=== PATIENT | male | born 1950 | race Caucasian/White ===

== ENCOUNTER 2019-12-03 19:08 | Inpatient (IN) | payer MEDICARE, MEDICAID ==
--- NOTE | 2019-12-03 19:14 | EDM.PDOC ---
ED HPI GENERAL MEDICAL PROBLEM - General Chief Complaint: Gastrointestinal Problem Stated Complaint: VOMITING Time Seen by Provider: 12/03/19 19:11 Source of Information: Reports: RN (From walk-in clinic), RN Notes Reviewed ( From walk-in clinic), Other (prison staff) History Limitations: Reports: Other (Patient is developmentally delayed and is somewhat limited in the history that he can supply.) - History of Present Illness INITIAL COMMENTS - FREE TEXT/NARRATIVE: 69-year-old male who (according to the patient and to the senior living staff) developed lower chest and upper abdominal pain associated with vomiting this morning. The vomiting has persisted through the day and has become bilious. He has been unable to keep any liquids down and he reports of the senior living staff he has had 15-20 episodes of emesis today. He has had no diarrhea. He does report the pain is in his upper abdomen and lower chest and he reports the pain is a 10/10. It is "a bad pain". It doesn't radiate. It is worse with palpation. He also has had a fever today and was measured with a fever of 101.6F here. The senior living staff tried to give him clear liquids throughout the day without him being able to keep any liquids down. He has had no cough. No reports of shortness of breath. No dysuria or hematuria. The patient does report that he has had urine output today. This is really all the history that I can obtain from him and from the senior living staff. He was initially taken to the walk-in clinic and was sent to the emergency department for further evaluation. There are no other associated signs or symptoms. There are no other modifying factors. Onset: Today Duration: Constant Location: Reports: Abdomen Quality: Reports: Sharp Severity: Severe Improves with: Reports: None Worsens with: Reports: Other (Palpation) Context: Reports: Other (As above) Associated Symptoms: Reports: Chest Pain, Fever/Chills, Loss of Appetite, Nausea /Vomiting, Weakness, Other (Abdominal pain) Treatments HIDE PULLER: Reports: Other (see below) (Nothing) abdomen Pain Score (Numeric/FACES): 10 - Related Data Allergies Allergy/AdvReac Type Severity Reaction Status Date / Time grass pollen Allergy Rash Verified 12/03/19 19:32 Home Meds: Home Meds Bimatoprost [LUMIGAN 0.01% Ophth Soln] 1 drop EYEBOTH BEDTIME 12/03/19 [History] Brimonidine Tartrate/Timolol [Combigan 0.2%-0.5% Eye Drops] 1 drop EYEBOTH BID 12/03/19 [History] Divalproex Sodium [Divalproex Sodium ER] 500 mg PO BEDTIME 12/03/19 [History] Dorzolamide HCl 1 drop EYEBOTH BID 12/03/19 [History] FLUoxetine HCl [Fluoxetine HCl] 40 mg PO DAILY 12/03/19 [History] Levothyroxine 75 mcg PO ACBREAKFAST 12/03/19 [History] Multivitamin [Multivitamins] 1 tab PO DAILY 12/03/19 [History] [place]-3 Fatty Acids/Fish Oil [Fish Oil 1,000 mg Softgel] 1 each PO DAILY [History] Polyethylene Glycol 3350 [Gavilax] 17 gm PO DAILY 12/03/19 [History] Vitamin B Complex [Balanced B-50] 1 each PO DAILY 12/03/19 [History] Past Medical History HEENT History: Reports: Glaucoma Cardiovascular History: Reports: High Cholesterol (Dyslipidemia) Gastrointestinal History: Reports: Chronic Constipation Psychiatric History: Reports: Antisocial Behaviors (Listed as having antisocial personality disorder), Depression, Developmental Delay (Borderline intellectual functioning) Endocrine/Metabolic History: Reports: Hypothyroidism - Past Surgical History Other Surgical History Comment: Patient denies any previous surgeries and specifically denies any abdominal operations. Social & Family History - Tobacco Use Smoking Status *Q: Former Smoker (Quit in 1999.) - Alcohol Use Alcohol Use History: No - Living Situation & Occupation Living situation: Reports: Other (Lives in a senior living.) Occupation: Disabled Social History Comment: He is here with senior living staff. ED ROS GENERAL - Review of Systems Review Of Systems: See Below Constitutional: Reports: Fever (This is somewhat limited but the patient is able to provide this information, I feel), Weakness HEENT: Reports: No Symptoms Respiratory: Reports: No Symptoms Cardiovascular: Reports: Chest Pain Endocrine: Reports: No Symptoms GI/Abdominal: Reports: Abdominal Pain, Nausea, Vomiting : Reports: No Symptoms Musculoskeletal: Reports: No Symptoms Skin: Reports: No Symptoms Neurological: Reports: Headache, Weakness (Generalized) Hematologic/Lymphatic: Reports: No Symptoms Immunologic: Reports: No Symptoms ED EXAM, GI/ABD - Physical Exam Exam: See Below Exam Limited By: No Limitations General Appearance: Alert, WD/WN, Moderate Distress Eyes: Bilateral: Normal Appearance, EOMI Ears: Normal External Exam, Hearing Loss Nose: Normal Inspection, Normal Mucosa, No Blood Throat/Mouth: Normal Voice, No Airway Compromise, Other (Dry mucous membranes) Head: Atraumatic, Normocephalic Neck: Normal Inspection, Supple, Non-Tender, Full Range of Motion Respiratory/Chest: No Respiratory Distress, Lungs Clear, Normal Breath Sounds, No Accessory Muscle Use, Chest Non-Tender Cardiovascular: Normal Peripheral Pulses, Regular Rate, Rhythm, No JVD, No Murmur GI/Abdominal Exam: Distended, Guarding, Tender (In the upper abdomen), Abnormal Bowel Sounds (Somewhat increased). No: Rebound (Male) Exam: No Hernia Back Exam: Normal Inspection, Full Range of Motion Extremities: Normal Inspection, Normal Range of Motion, Non-Tender, No Pedal Edema, Normal Capillary Refill Neurological: Alert, Oriented, CN II-XII Intact, No Motor/Sensory Deficits Skin Exam: Warm, Dry, Intact, Normal Color, No Rash EKG INTERPRETATION EKG Date: 12/03/19 Time: 19:48 Rhythm: NSR Rate (Beats/Min): 99 [place]: Normal P-Wave: Present QRS: Normal ST-T: Depressed (Lateral ST depression in inferior ST) QT: Normal Comparison: NA - No Prior EKG Course - Vital Signs Last Recorded V/S: Last Vital Signs Temp 38.7 C H 12/03/19 19:15 Pulse 102 H 12/03/19 19:15 Resp 15 12/03/19 19:15 BP 127/72 12/03/19 19:15 Pulse Ox 95 12/03/19 19:15 - Orders/Labs/Meds Orders: Active Orders 24 hr Category Date Time Status Admission Status [Patient Status] [ADT] Routine ADT 12/03/19 22:59 Active Bladder Scan [RC] ONETIME Care 12/03/19 20:29 Active EKG Documentation Completion [RC] ASDIRECTED Care 12/03/19 19:38 Active Insert Urinary Catheter [OM.PC] ONETIME Care 12/03/19 23:00 Ordered Abdomen Pelvis w Cont [CT] Stat Exams 12/03/19 20:54 Taken Chest 1V Frontal [CR] Stat Exams 12/03/19 22:58 Taken CULTURE BLOOD [BC] Urgent Lab 12/03/19 19:50 Received CULTURE BLOOD [BC] Urgent Lab 12/03/19 19:55 Received CULTURE URINE [RM] Stat Lab 12/03/19 23:05 Received Sodium Chloride 0.9% [Normal Saline] 1,000 ml Med 12/03/19 19:45 Active IV ASDIRECTED Sodium Chloride 0.9% [Saline Flush] Med 12/03/19 19:35 Active 10 ml FLUSH ASDIRECTED PRN Blood Culture x2 Reflex Set [OM.PC] Urgent Oth 12/03/19 19:35 Ordered Peripheral IV Insertion Adult [OM.PC] Routine Oth 12/03/19 19:35 Ordered EKG 12 Lead [EK] Routine Ther 12/03/19 19:38 Ordered Medication Orders Acetaminophen (Tylenol) 650 mg PO Q4H PRN PRN Reason: Pain (Mild 1-3)/fever Ceftriaxone Sodium (Rocephin) 2 gm IVPUSH DAILY@2300 [facility] Sodium Chloride (Normal Saline) 1,000 mls @ 150 mls/hr IV ASDIRECTED JESUS MANUEL Last Admin: 12/03/19 23:00 Dose: 150 mls/hr Azithromycin 500 mg/ Sodium (Chloride) 250 mls @ 250 mls/hr IV DAILY@2300 [facility] Morphine Sulfate (Morphine) 2 mg IVPUSH Q2H PRN PRN Reason: Pain (severe 7-10) Ondansetron HCl (Zofran) 4 mg IV Q6H PRN PRN Reason: Nausea/Vomiting Sodium Chloride (Saline Flush) 10 ml FLUSH ASDIRECTED PRN PRN Reason: Keep Vein Open Labs: Laboratory Tests 12/03/19 12/03/19 12/03/19 Range/Units 19:50 19:50 19:50 WBC 7.5 (4.5-12.0) X10-3/uL RBC 4.78 (4.30-5.75) x10(6)uL Hgb 14.5 (13.5-17.8) g/dL Hct 43.2 (30.0-51.3) % MCV 90.3 (80-96) fL MCH 30.4 (27.7-33.6) pg MCHC 33.6 (32.2-35.4) g/dL RDW 12.8 (11.5-15.5) % Plt Count 207 (125-369) X10(3)uL MPV 7.1 L (7.4-10.4) fL Add Manual Diff Yes Neutrophils % (Manual) 85 H (46-82) % Lymphocytes % (Manual) 7 L (13-37) % Monocytes % (Manual) 8 (4-12) % Sodium 144 (135-145) mmol/L Potassium 3.8 (3.5-5.3) mmol/L Chloride 104 (100-110) mmol/L Carbon Dioxide 28 (21-32) mmol/L BUN 20 H (7-18) mg/dL Creatinine 1.2 (0.70-1.30) mg/dL Est Cr Clr Drug Dosing TNP Estimated GFR (MDRD) > 60 (>60) BUN/Creatinine Ratio 16.7 (9-20) Glucose 199 H (80-116) mg/dL Lactic Acid 2.7 H* (0.4-2.0) mmol/L Calcium 8.6 (8.6-10.2) mg/dL Magnesium 1.5 L (1.8-2.5) mg/dL Total Bilirubin 0.5 (0.1-1.3) mg/dL AST 22 (5-25) IU/L ALT 24 (12-36) U/L Alkaline Phosphatase 62 (56-112) IU/L Troponin I (4.0-60.3) pg/mL C-Reactive Protein (0.5-0.9) mg/dL Total Protein 7.6 (6.0-8.0) g/dL Albumin 3.2 (3.2-4.6) g/dL Globulin 4.4 g/dL Albumin/Globulin Ratio 0.7 Lipase (73-393) U/L Urine Color (YELLOW) Urine Appearance (CLEAR) Urine pH (5.0-6.5) Ur Specific [place] (1.010-1.025) Urine Protein (NEGATIVE) mg/dL Urine Glucose (UA) (NORMAL) mg/dL Urine Ketones (NEGATIVE) mg/dL Urine Occult Blood (NEGATIVE) Urine Nitrite (NEGATIVE) Urine Bilirubin (NEGATIVE) Urine Urobilinogen (NEGATIVE) mg/dL Ur Leukocyte Esterase (NEGATIVE) Urine RBC (0-5) Urine WBC (0-5) Ur Squamous Epith Cells (NS,R,O) Urine Bacteria (NS) Urine Mucus (NS) 12/03/19 12/03/19 12/03/19 Range/Units 19:50 19:50 23:05 WBC (4.5-12.0) X10-3/uL RBC (4.30-5.75) x10(6)uL Hgb (13.5-17.8) g/dL Hct (30.0-51.3) % MCV (80-96) fL MCH (27.7-33.6) pg MCHC (32.2-35.4) g/dL RDW (11.5-15.5) % Plt Count (125-369) X10(3)uL MPV (7.4-10.4) fL Add Manual Diff Neutrophils % (Manual) (46-82) % Lymphocytes % (Manual) (13-37) % Monocytes % (Manual) (4-12) % Sodium (135-145) mmol/L Potassium (3.5-5.3) mmol/L Chloride (100-110) mmol/L Carbon Dioxide (21-32) mmol/L BUN (7-18) mg/dL Creatinine (0.70-1.30) mg/dL Est Cr Clr Drug Dosing Estimated GFR (MDRD) (>60) BUN/Creatinine Ratio (9-20) Glucose (80-116) mg/dL Lactic Acid (0.4-2.0) mmol/L Calcium (8.6-10.2) mg/dL Magnesium (1.8-2.5) mg/dL Total Bilirubin (0.1-1.3) mg/dL AST (5-25) IU/L ALT (12-36) U/L Alkaline Phosphatase (56-112) IU/L Troponin I 6.7 (4.0-60.3) pg/mL C-Reactive Protein 5.1 H* (0.5-0.9) mg/dL Total Protein (6.0-8.0) g/dL Albumin (3.2-4.6) g/dL Globulin g/dL Albumin/Globulin Ratio Lipase 55 L (73-393) U/L Urine Color Yellow (YELLOW) Urine Appearance Slightly cloudy (CLEAR) Urine pH 5.0 (5.0-6.5) Ur Specific [place] 1.020 (1.010-1.025) Urine Protein Negative (NEGATIVE) mg/dL Urine Glucose (UA) Normal (NORMAL) mg/dL Urine Ketones Negative (NEGATIVE) mg/dL Urine Occult Blood Negative (NEGATIVE) Urine Nitrite Negative (NEGATIVE) Urine Bilirubin Negative (NEGATIVE) Urine Urobilinogen Normal (NEGATIVE) mg/dL Ur Leukocyte Esterase Negative (NEGATIVE) Urine RBC 0-5 (0-5) Urine WBC 0-5 (0-5) Ur Squamous Epith Cells Occasional (NS,R,O) Urine Bacteria Few H (NS) Urine Mucus Few H (NS) Meds: Medications Generic Name Dose Route Start Last Admin Trade Name Anny PRN Reason Stop Dose Admin Acetaminophen 650 mg 12/03/19 23:10 Tylenol PO Q4H PRN Pain (Mild 1-3)/fever Ceftriaxone Sodium 2 gm 12/03/19 23:15 Rocephin IVPUSH DAILY@2300 [facility] Sodium Chloride 1,000 mls @ 150 mls/hr 12/03/19 19:45 12/03/19 23:00 Normal Saline IV 150 mls/hr ASDIRECTED JESUS MANUEL Administration Azithromycin 500 mg/ Sodium 250 mls @ 250 mls/hr 12/03/19 23:15 Chloride IV DAILY@2300 [facility] Morphine Sulfate 2 mg 12/03/19 23:10 Morphine IVPUSH Q2H PRN Pain (severe 7-10) Ondansetron HCl 4 mg 12/03/19 23:10 Zofran IV Q6H PRN Nausea/Vomiting Sodium Chloride 10 ml 12/03/19 19:35 Saline Flush FLUSH ASDIRECTED PRN Keep Vein Open Discontinued Medications Generic Name Dose Route Start Last Admin Trade Name Anny PRN Reason Stop Dose Admin Sodium Chloride 1,000 mls @ 999 mls/hr 12/03/19 19:37 12/03/19 19:56 Normal Saline IV 12/03/19 20:37 999 mls/hr .BOLUS ONE Administration Sodium Chloride 1,000 mls @ 999 mls/hr 12/03/19 21:43 12/03/19 21:50 Normal Saline IV 12/03/19 22:43 999 mls/hr .BOLUS ONE Administration Iopamidol 100 ml 12/03/19 20:58 12/03/19 21:28 Isovue-370 (76%) IV 12/03/19 20:59 100 ml . DIRECTED ONE Administration Lidocaine HCl 5 ml 12/03/19 22:51 12/03/19 22:55 Glydo .XX 12/03/19 22:52 5 ml ONETIME ONE Administration Morphine Sulfate 4 mg 12/03/19 19:37 12/03/19 19:54 Morphine IVPUSH 12/03/19 19:38 4 mg ONETIME ONE Administration Ondansetron HCl 4 mg 12/03/19 19:37 12/03/19 19:54 Zofran IVPUSH 12/03/19 19:38 4 mg ONETIME ONE Administration - Radiology Interpretation Free Text/Narrative:: CT scan of abdomen and pelvis shows patchy infiltrate in the posterior left lung base cyst with left lower lobe pneumonia and nothing else to explain the patient's abdominal pain and vomiting there is moderate dilation of the common bile duct and mild intrahepatic biliary ductal dilatation status post cholecystectomy and he does appear to have had his gallbladder taken out. He also has evidence of a umbilical hernia repair. This was per the [facility] radiologist. Portable chest x-ray shows some evidence of infiltrate in the left base but no other abnormalities. - Re-Assessments/Exams Free Text/Narrative Re-Assessment/Exam: 12/03/19 20:50: The patient has had no further emesis since the IV fluids have begun and he has received the Zofran IV. His pain is much improved after the morphine that had been given IV earlier. With the patient's elevated CRP and the slightly elevated lactate and his abdominal and chest pain, I will send the patient for CT of his abdomen and pelvis. I will continue IV fluid hydration as the patient has received a liter of normal saline and still has only 100 mL in his bladder on bladder scan. 12/03/19 22:55: The CT scan of his abdomen and pelvis showed evidence of a left lower lobe pneumonia. I will order a portable chest x-ray to assess the other areas of the lung. I will also treat the patient with Rocephin and Zithromax IV. He has received 2 L of normal saline and his bladder scan showed 280 riojas and his bladder. I will have the nursing staff do an in and out catheter for a urine specimen. I will also have the lactic acid repeated at this time as well. Although this appears to be due to dehydration and not to sepsis at this time. He has remained vitally stable and has improved with the IV fluids while in the emergency department. I will send this for culture as well. The patient has a left lower lobe pneumonia with protracted vomiting and will need admission for IV antibiotics and IV fluids. He will need at least a 2 midnight hospital stay to complete this plan of care. I discussed this with the patient's caregiver from the senior living and with the patient and they are in agreement with the plans for admission. Dr. Thomason will assume care of patient 7 AM on 12/04/2019. 12/03/19 23:55: The patient's lactic acid was back in the normal range and therefore I think the patient the slight elevation in the lactic acid was secondary to dehydration. His influenza screen was also negative. Departure - Departure Time of Disposition: 23:15 Disposition: Admitted As Inpatient 68 Condition: Fair (Able) Clinical Impression: Intractable vomiting with nausea, Severe dehydration Pneumonia Qualifiers: Pneumonia type: due to unspecified organism Laterality: left Lung location: lower lobe of lung Qualified Code(s): J18.9 - Pneumonia, unspecified organism - Discharge Information Sepsis Event Note - Focused Exam Vital Signs: Vital Signs Temp Pulse Resp BP Pulse Ox 12/03/19 19:15 38.7 C H 102 H 15 127/72 95 Date Exam was Performed: 12/03/19 Time Exam was Performed: 23:55 - My Orders Last 24 Hours: My Active Orders 12/03/19 19:35 Sodium Chloride 0.9% [Saline Flush] 10 ml FLUSH ASDIRECTED PRN Blood Culture x2 Reflex Set [OM.PC] Urgent Peripheral IV Insertion Adult [OM.PC] Routine 12/03/19 19:38 EKG Documentation Completion [RC] ASDIRECTED EKG 12 Lead [EK] Routine 12/03/19 19:45 Sodium Chloride 0.9% [Normal Saline] 1,000 ml IV ASDIRECTED 12/03/19 19:50 CULTURE BLOOD [BC] Urgent 12/03/19 19:55 CULTURE BLOOD [BC] Urgent 12/03/19 20:29 Bladder Scan [RC] ONETIME 12/03/19 20:54 Abdomen Pelvis w Cont [CT] Stat 12/03/19 22:58 Chest 1V Frontal [CR] Stat 12/03/19 22:59 Admission Status [Patient Status] [ADT] Routine 12/03/19 23:00 Insert Urinary Catheter [OM.PC] ONETIME 12/03/19 23:05 CULTURE URINE [RM] Stat - Assessment/Plan Last 24 Hours: My Active Orders 12/03/19 19:35 Sodium Chloride 0.9% [Saline Flush] 10 ml FLUSH ASDIRECTED PRN Blood Culture x2 Reflex Set [OM.PC] Urgent Peripheral IV Insertion Adult [OM.PC] Routine 12/03/19 19:38 EKG Documentation Completion [RC] ASDIRECTED EKG 12 Lead [EK] Routine 12/03/19 19:45 Sodium Chloride 0.9% [Normal Saline] 1,000 ml IV ASDIRECTED 12/03/19 19:50 CULTURE BLOOD [BC] Urgent 12/03/19 19:55 CULTURE BLOOD [BC] Urgent 12/03/19 20:29 Bladder Scan [RC] ONETIME 12/03/19 20:54 Abdomen Pelvis w Cont [CT] Stat 12/03/19 22:58 Chest 1V Frontal [CR] Stat 12/03/19 22:59 Admission Status [Patient Status] [ADT] Routine 12/03/19 23:00 Insert Urinary Catheter [OM.PC] ONETIME 12/03/19 23:05 CULTURE URINE [RM] Stat
[2019-12-03] MEDS ORDERED: Sodium Chloride 0.9% 1,000 ML IV ONE ×2 (19:37→21:43)
[2019-12-03] MEDS ORDERED: Ondansetron 4 MG/2 ML SDV IVPUSH ONE (19:37)
[2019-12-03] MEDS ORDERED: Morphine 2 MG/ML Syringe IVPUSH ONE (19:37)
[2019-12-03] MEDS ORDERED: Iopamidol 755 Mg/ML 100 ML Bottle IV ONE (20:58)
[2019-12-03] MEDS ORDERED: Lidocaine 2% HCl 6 ML JEL.PF.APP ONE (22:51)
[2019-12-03] MEDS: Sodium Chloride 0.9% 1,000 ML IV SCH (23:00)
[2019-12-03] MEDS ORDERED: Morphine 2 MG/ML Syringe IVPUSH PRN (23:10)
[2019-12-03] MEDS ORDERED: Acetaminophen 325 MG Tab PO PRN (23:10)
[2019-12-03] MEDS ORDERED: cefTRIAXone 2 GM Vial IVPUSH SCH (23:15)
[2019-12-04] MEDS: Azithromycin 500 MG in Sodium Chloride 0.9% 250 ML IV SCH ×2 (00:15→23:10)
[2019-12-04] MEDS: Sodium Chloride 0.9% 1,000 ML IV SCH ×3 (07:02→23:06)
--- NOTE | 2019-12-04 09:06 | PCM.HP.2 ---
H&P History of Present Illness - General Date of Service: 12/04/19 Admit Problem/Dx: Admission Diagnosis/Problem Admission Diagnosis/Problem Pneumonia Source of Information: Patient, Old Records History Limitations: Reports: Other (Decreased IQ) - History of Present Illness Initial Comments - Free Text/Narative: This is a 69-year-old skilled nursing patient was sent to the ER because of lower chest pain and upper abdominal pain associated with vomiting. Apparently had 15- 20 episodes of emesis during the day yesterday but no diarrhea. He was found to have a fever 101.6. He is brought to the ER and had a CT of the abdomen and was negative except the left lower lobe pneumonia. He was admitted for left lower lobe pneumonia. He denies coughing runny nose, sore throat, shortness of breath. abdomen Pain Score (Numeric/FACES): 10 - Related Data Allergies/Adverse Reactions: Allergies Allergy/AdvReac Type Severity Reaction Status Date / Time grass pollen Allergy Rash Verified 12/03/19 19:32 Home Medications: Home Meds Bimatoprost [LUMIGAN 0.01% Ophth Soln] 1 drop EYEBOTH BEDTIME 12/03/19 [History] Brimonidine Tartrate/Timolol [Combigan 0.2%-0.5% Eye Drops] 1 drop EYEBOTH BID 12/03/19 [History] Carbidopa/Levodopa [Sinemet 25-100 mg Tablet] 1 tab PO TID 12/03/19 [History] Cholecalciferol (Vitamin D3) [Vitamin D3] 400 unit PO BID 12/03/19 [History] Divalproex Sodium [Divalproex Sodium ER] 500 mg PO BEDTIME 12/03/19 [History] Docusate Sodium/Sennosides [Senna Plus] 2 tab PO BID 12/03/19 [History] Dorzolamide HCl 1 drop EYEBOTH BID 12/03/19 [History] FLUoxetine HCl [Fluoxetine HCl] 40 mg PO DAILY 12/03/19 [History] Hypromellose [Systane Gel] 1 drop EYEBOTH BEDTIME 12/03/19 [History] Levothyroxine 75 mcg PO ACBREAKFAST 12/03/19 [History] Multivitamin [Multivitamins] 1 tab PO DAILY 12/03/19 [History] [place]-3 Fatty Acids/Fish Oil [Fish Oil 1,000 mg Softgel] 1 each PO DAILY [History] Omeprazole 20 mg PO DAILY 12/03/19 [History] Polyethylene Glycol 3350 [Gavilax] 17 gm PO DAILY 12/03/19 [History] Propylene Glycol/PEG 400/Pf [Systane Ultra 0.4-0.3% Eye Drp] 1 each EYEBOTH QID 12/03/19 [History] QUEtiapine [SEROquel] 25 mg PO BEDTIME 12/03/19 [History] Simvastatin 20 mg PO DAILY 12/03/19 [History] Vitamin B Complex [Balanced B-50] 1 each PO DAILY 12/03/19 [History] Vitamin E 400 unit PO DAILY 12/03/19 [History] Past Medical History HEENT History: Reports: Glaucoma Other HEENT History: rhinitis Cardiovascular History: Reports: High Cholesterol (Dyslipidemia) Respiratory History: Reports: Other (See Below) Other Respiratory History: former smoker, rhinitis, seasonal allergies. Gastrointestinal History: Reports: Chronic Constipation Genitourinary History: Reports: Other (See Below) Other Genitourinary History: hx of prostatitis-epiclemitis Musculoskeletal History: Reports: Other (See Below) Other Musculoskeletal History: TMJ Arthralgia, motor speech disturbance, mild kyphosis, bursitis. Chronic neck discomfort, hip discomfort. 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 Endocrine/Metabolic History: Reports: Hypothyroidism - Past Surgical History Other Surgical History Comment: Patient denies any previous surgeries and specifically denies any abdominal operations. Social & Family History - Family History Family Medical History: Noncontributory - Tobacco Use Smoking Status *Q: Former Smoker (Quit in 1999.) Used Tobacco, but Quit: Yes Month/Year Tobacco Last Used: unable to remember Second Hand Smoke Exposure: No - Caffeine Use Caffeine Use: Reports: Coffee, Soda - Recreational Drug Use Recreational Drug Use: No - Living Situation & Occupation Living situation: Reports: Other (Lives in a skilled nursing.) Occupation: Disabled H&P Review of Systems - Review of Systems: Review Of Systems: See Below General: Reports: Fever HEENT: Reports: No Symptoms Pulmonary: Reports: No Symptoms Cardiovascular: Reports: Chest Pain Gastrointestinal: Reports: Abdominal Pain, Vomiting. Denies: Bloody Stool, Diarrhea Genitourinary: Reports: No Symptoms Musculoskeletal: Reports: No Symptoms Skin: Reports: No Symptoms Psychiatric: Reports: No Symptoms Neurological: Reports: No Symptoms Hematologic/Lymphatic: Reports: No Symptoms Immunologic: Reports: No Symptoms Exam - Exam Exam: See Below - Vital Signs Vital Signs: Last Vital Signs Temp 98.8 F 12/04/19 08:25 Pulse 90 12/04/19 08:25 Resp 18 12/04/19 08:25 BP 88/50 L 12/04/19 08:25 Pulse Ox 95 12/04/19 08:25 Weight: 170 lb 3 oz - Exam General: Alert, Oriented, Cooperative HEENT: Mucosa Moist & [place], Posterior Pharynx Clear, TMs Clear Neck: Supple, Trachea Midline Lungs: Clear to Auscultation, Normal Respiratory Effort Cardiovascular: Regular Rate, Regular Rhythm. No: Systolic Murmur GI/Abdominal Exam: Normal Bowel Sounds, Soft, Non-Tender, No Organomegaly, No Distention, No Mass Back Exam: Normal Inspection Extremities: Normal Inspection, Non-Tender, No Pedal Edema Neuro Extensive - Mental Status: Alert, Oriented x3, Normal Mood/Affect. No: Normal Cognition Psychiatric: Alert - Patient Data Lab Results Last 24 hrs: Laboratory Results - last 24 hr 12/03/19 12/03/19 12/03/19 Range/Units 19:50 19:50 19:50 WBC 7.5 (4.5-12.0) X10-3/uL RBC 4.78 (4.30-5.75) x10(6)uL Hgb 14.5 (13.5-17.8) g/dL Hct 43.2 (30.0-51.3) % MCV 90.3 (80-96) fL MCH 30.4 (27.7-33.6) pg MCHC 33.6 (32.2-35.4) g/dL RDW 12.8 (11.5-15.5) % Plt Count 207 (125-369) X10(3)uL MPV 7.1 L (7.4-10.4) fL Add Manual Diff Yes Neutrophils % (Manual) 85 H (46-82) % Band Neutrophils % (0-6) % Lymphocytes % (Manual) 7 L (13-37) % Monocytes % (Manual) 8 (4-12) % Sodium 144 (135-145) mmol/L Potassium 3.8 (3.5-5.3) mmol/L Chloride 104 (100-110) mmol/L Carbon Dioxide 28 (21-32) mmol/L BUN 20 H (7-18) mg/dL Creatinine 1.2 (0.70-1.30) mg/dL Est Cr Clr Drug Dosing TNP Estimated GFR (MDRD) > 60 (>60) BUN/Creatinine Ratio 16.7 (9-20) Glucose 199 H (80-116) mg/dL Lactic Acid 2.7 H* (0.4-2.0) mmol/L Calcium 8.6 (8.6-10.2) mg/dL Magnesium 1.5 L (1.8-2.5) mg/dL Total Bilirubin 0.5 (0.1-1.3) mg/dL AST 22 (5-25) IU/L ALT 24 (12-36) U/L Alkaline Phosphatase 62 (56-112) IU/L Troponin I (4.0-60.3) pg/mL C-Reactive Protein (0.5-0.9) mg/dL Total Protein 7.6 (6.0-8.0) g/dL Albumin 3.2 (3.2-4.6) g/dL Globulin 4.4 g/dL Albumin/Globulin Ratio 0.7 Lipase (73-393) U/L Urine Color (YELLOW) Urine Appearance (CLEAR) Urine pH (5.0-6.5) Ur Specific [place] (1.010-1.025) Urine Protein (NEGATIVE) mg/dL Urine Glucose (UA) (NORMAL) mg/dL Urine Ketones (NEGATIVE) mg/dL Urine Occult Blood (NEGATIVE) Urine Nitrite (NEGATIVE) Urine Bilirubin (NEGATIVE) Urine Urobilinogen (NEGATIVE) mg/dL Ur Leukocyte Esterase (NEGATIVE) Urine RBC (0-5) Urine WBC (0-5) Ur Squamous Epith Cells (NS,R,O) Urine Bacteria (NS) Urine Mucus (NS) 12/03/19 12/03/19 12/03/19 Range/Units 19:50 19:50 23:05 WBC (4.5-12.0) X10-3/uL RBC (4.30-5.75) x10(6)uL Hgb (13.5-17.8) g/dL Hct (30.0-51.3) % MCV (80-96) fL MCH (27.7-33.6) pg MCHC (32.2-35.4) g/dL RDW (11.5-15.5) % Plt Count (125-369) X10(3)uL MPV (7.4-10.4) fL Add Manual Diff Neutrophils % (Manual) (46-82) % Band Neutrophils % (0-6) % Lymphocytes % (Manual) (13-37) % Monocytes % (Manual) (4-12) % Sodium (135-145) mmol/L Potassium (3.5-5.3) mmol/L Chloride (100-110) mmol/L Carbon Dioxide (21-32) mmol/L BUN (7-18) mg/dL Creatinine (0.70-1.30) mg/dL Est Cr Clr Drug Dosing Estimated GFR (MDRD) (>60) BUN/Creatinine Ratio (9-20) Glucose (80-116) mg/dL Lactic Acid (0.4-2.0) mmol/L Calcium (8.6-10.2) mg/dL Magnesium (1.8-2.5) mg/dL Total Bilirubin (0.1-1.3) mg/dL AST (5-25) IU/L ALT (12-36) U/L Alkaline Phosphatase (56-112) IU/L Troponin I 6.7 (4.0-60.3) pg/mL C-Reactive Protein 5.1 H* (0.5-0.9) mg/dL Total Protein (6.0-8.0) g/dL Albumin (3.2-4.6) g/dL Globulin g/dL Albumin/Globulin Ratio Lipase 55 L (73-393) U/L Urine Color Yellow (YELLOW) Urine Appearance Slightly cloudy (CLEAR) Urine pH 5.0 (5.0-6.5) Ur Specific [place] 1.020 (1.010-1.025) Urine Protein Negative (NEGATIVE) mg/dL Urine Glucose (UA) Normal (NORMAL) mg/dL Urine Ketones Negative (NEGATIVE) mg/dL Urine Occult Blood Negative (NEGATIVE) Urine Nitrite Negative (NEGATIVE) Urine Bilirubin Negative (NEGATIVE) Urine Urobilinogen Normal (NEGATIVE) mg/dL Ur Leukocyte Esterase Negative (NEGATIVE) Urine RBC 0-5 (0-5) Urine WBC 0-5 (0-5) Ur Squamous Epith Cells Occasional (NS,R,O) Urine Bacteria Few H (NS) Urine Mucus Few H (NS) 12/03/19 12/04/19 12/04/19 Range/Units 23:15 06:20 06:20 WBC 4.3 L (4.5-12.0) X10-3/uL RBC 3.76 L (4.30-5.75) x10(6)uL Hgb 11.6 L (13.5-17.8) g/dL Hct 34.2 (30.0-51.3) % MCV 90.9 (80-96) fL MCH 30.9 (27.7-33.6) pg MCHC 33.9 (32.2-35.4) g/dL RDW 12.9 (11.5-15.5) % Plt Count 161 (125-369) X10(3)uL MPV 7.3 L (7.4-10.4) fL Add Manual Diff Yes Neutrophils % (Manual) 63 (46-82) % Band Neutrophils % 5 (0-6) % Lymphocytes % (Manual) 24 (13-37) % Monocytes % (Manual) 8 (4-12) % Sodium 147 H (135-145) mmol/L Potassium 3.6 (3.5-5.3) mmol/L Chloride 110 D (100-110) mmol/L Carbon Dioxide 29 (21-32) mmol/L BUN 17 (7-18) mg/dL Creatinine 1.0 (0.70-1.30) mg/dL Est Cr Clr Drug Dosing 67.02 Estimated GFR (MDRD) > 60 (>60) BUN/Creatinine Ratio 17.0 (9-20) Glucose 138 H (80-116) mg/dL Lactic Acid 1.5 (0.4-2.0) mmol/L Calcium 6.9 L (8.6-10.2) mg/dL Magnesium (1.8-2.5) mg/dL Total Bilirubin (0.1-1.3) mg/dL AST (5-25) IU/L ALT (12-36) U/L Alkaline Phosphatase (56-112) IU/L Troponin I (4.0-60.3) pg/mL C-Reactive Protein (0.5-0.9) mg/dL Total Protein (6.0-8.0) g/dL Albumin (3.2-4.6) g/dL Globulin g/dL Albumin/Globulin Ratio Lipase (73-393) U/L Urine Color (YELLOW) Urine Appearance (CLEAR) Urine pH (5.0-6.5) Ur Specific [place] (1.010-1.025) Urine Protein (NEGATIVE) mg/dL Urine Glucose (UA) (NORMAL) mg/dL Urine Ketones (NEGATIVE) mg/dL Urine Occult Blood (NEGATIVE) Urine Nitrite (NEGATIVE) Urine Bilirubin (NEGATIVE) Urine Urobilinogen (NEGATIVE) mg/dL Ur Leukocyte Esterase (NEGATIVE) Urine RBC (0-5) Urine WBC (0-5) Ur Squamous Epith Cells (NS,R,O) Urine Bacteria (NS) Urine Mucus (NS) Result Diagrams: 12/04/19 06:20 12/04/19 06:20 Conrad Results Last 24 hrs: Microbiology 12/03/19 23:10 Influenza Type A Antigen Screen - Final Nasopharyngeal Swab NEGATIVE INFLUENZA A VIRUS AG REFERENCE RANGE: NEGATIVE Influenza Type B Antigen Screen - Final NEGATIVE INFLUENZA B VIRUS AG REFERENCE RANGE: NEGATIVE Sepsis Event Note - Evaluation Sepsis Screening Result: No Definite Risk - Focused Exam Vital Signs: Vital Signs Temp Temp Pulse Resp BP Pulse Ox Pulse Ox 12/04/19 08:25 98.8 F 90 18 88/50 L 95 12/04/19 04:00 99.0 F 96 20 96/58 L 96 12/04/19 00:05 99.8 F 100 22 H 100/65 84 L 84 L 12/03/19 23:55 84 L Date Exam was Performed: 12/04/19 Time Exam was Performed: 09:01 - Problem List (1) Palliative care status SNOMED Code(s): 981719760 ICD Code: Z51.5 - ENCOUNTER FOR PALLIATIVE CARE Status: Acute Current Visit: Yes (2) Intractable vomiting with nausea SNOMED Code(s): 697400086 ICD Code: R11.2 - NAUSEA WITH VOMITING, UNSPECIFIED Status: Acute Current Visit: Yes (3) Pneumonia SNOMED Code(s): 338145320 ICD Code: J18.9 - PNEUMONIA, UNSPECIFIED ORGANISM Status: Acute Current Visit: Yes Qualifiers: Pneumonia type: due to unspecified organism Laterality: left Lung location: lower lobe of lung Qualified Code(s): J18.9 - Pneumonia, unspecified organism (4) Severe dehydration SNOMED Code(s): 471077492 ICD Code: E86.0 - DEHYDRATION Status: Acute Current Visit: Yes Problem List Initiated/Reviewed/Updated: Yes Orders Last 24hrs: Active Orders 24 hr Category Date Time Status Admission Status [Patient Status] [ADT] Routine ADT 12/03/19 22:59 Active Insert Urinary Catheter [OM.PC] ONETIME Care 12/03/19 23:00 Ordered Intake and Output [RC] 06,14,22 Care 12/03/19 23:11 Active Oxygen Therapy [RC] PRN Care 12/03/19 23:10 Active Pulse Oximetry [RC] PRN Care 12/03/19 23:11 Active Up With Assistance [RC] ASDIRECTED Care 12/03/19 23:10 Active VTE/DVT Education [RC] Per Unit Routine Care 12/03/19 23:10 Active Vital Signs [RC] Q4H Care 12/03/19 23:10 Active Regular Diet [DIET] Diet 12/04/19 Breakfast Active Abdomen Pelvis w Cont [CT] Stat Exams 12/03/19 20:54 Taken Chest 1V Frontal [CR] Stat Exams 12/03/19 22:58 Taken CULTURE BLOOD [BC] Urgent Lab 12/03/19 19:50 Received CULTURE BLOOD [BC] Urgent Lab 12/03/19 19:55 Received CULTURE URINE [RM] Stat Lab 12/03/19 23:05 Received Acetaminophen [Tylenol] Med 12/03/19 23:10 Active 650 mg PO Q4H PRN Azithromycin [Zithromax] 500 mg Med 12/03/19 23:15 Active Sodium Chloride 0.9% [Normal Saline (AdvBag)] 250 ml IV DAILY@2300 Morphine Med 12/03/19 23:10 Active 2 mg IVPUSH Q2H PRN Ondansetron [Zofran] Med 12/03/19 23:10 Active 4 mg IV Q6H PRN Sodium Chloride 0.9% [Normal Saline] 1,000 ml Med 12/03/19 19:45 Active IV ASDIRECTED Sodium Chloride 0.9% [Saline Flush] Med 12/03/19 19:35 Active 10 ml FLUSH ASDIRECTED PRN cefTRIAXone [Rocephin] Med 12/03/19 23:15 Active 2 gm IVPUSH DAILY@2300 Blood Culture x2 Reflex Set [OM.PC] Urgent Oth 12/03/19 19:35 Ordered Isolation [COMM] Routine Oth 12/03/19 23:26 Ordered Peripheral IV Insertion Adult [OM.PC] Routine Oth 12/03/19 19:35 Ordered Resuscitation Status Routine Resus Stat 12/03/19 23:10 Ordered EKG 12 Lead [EK] Routine Ther 12/03/19 19:38 Ordered Medication Orders Acetaminophen (Tylenol) 650 mg PO Q4H PRN PRN Reason: Pain (Mild 1-3)/fever Ceftriaxone Sodium (Rocephin) 2 gm IVPUSH DAILY@2300 [facility] Last Admin: 12/04/19 00:07 Dose: 2 gm Sodium Chloride (Normal Saline) 1,000 mls @ 150 mls/hr IV ASDIRECTED [facility] Last Admin: 12/04/19 07:02 Dose: 150 mls/hr Infusion: 12/04/19 05:41 Dose: 150 mls/hr Admin: 12/03/19 23:00 Dose: 150 mls/hr Azithromycin 500 mg/ Sodium (Chloride) 250 mls @ 250 mls/hr IV DAILY@2300 [facility] Last Admin: 12/04/19 00:15 Dose: 250 mls/hr Morphine Sulfate (Morphine) 2 mg IVPUSH Q2H PRN PRN Reason: Pain (severe 7-10) Ondansetron HCl (Zofran) 4 mg IV Q6H PRN PRN Reason: Nausea/Vomiting Sodium Chloride (Saline Flush) 10 ml FLUSH ASDIRECTED PRN PRN Reason: Keep Vein Open Assessment/Plan Comment:: 1. Admit to inpatient. 2. IV antibiotics. 3. Blood cultures. 4. Regular diet. 5. IV fluids. 6. Review his home meds and restart the appropriate ones. 7. Up with assist. 8. Repeat labs in the a.m. 9 VTE with Lovenox - Mortality Measure Prognosis:: Good
--- NOTE | 2019-12-04 10:41 | CR ---
INDICATION: Followup pneumonia seen on CT scan. CHEST, 1 VIEW: Portable AP upright view of the chest was obtained 12/03/19 - comparison was made to CT of the abdomen and pelvis of the same date. Poor inspiration emphasizes markings. Somewhat heavy markings are noted at both lung bases, but particularly on the left. Cannot exclude the possibility of pneumonia at the lung bases, especially on the left. The heart appears mildly enlarged. The aorta is tortuous with minimal calcifications in the arch. IMPRESSION: 1. Findings suggest the examination is less than ideal. The possibility of pneumonia, especially at the left lung base, cannot be excluded with findings compatible with CT showing possible pneumonia and possibly also atelectasis in the left lower lobe. 2. ASHD with cardiomegaly. Would suggest a PA and lateral view with full inspiration when clinically possible for further evaluation. MTDD
[2019-12-04] MEDS: Levothyroxine 75 MCG Tab PO SCH (14:14)
[2019-12-04] MEDS: Pantoprazole 40 MG Tab.CR PO SCH (14:14)
[2019-12-04] MEDS: Polyethylene Glycol 3350 Powder 17 GM Packet PO SCH (14:14)
[2019-12-04] MEDS: FLUoxetine 20 MG Cap PO SCH (14:14)
[2019-12-04] MEDS: Carbidopa/Levodopa 25-100 MG Tab PO SCH ×3 (14:16→20:01)
[2019-12-04] MEDS: Brimonidine 0.2% Ophth Soln 5 ML Bottle EYEBOTH SCH ×2 (14:24→20:02)
[2019-12-04] MEDS: Timolol Maleate 0.5% Ophth Soln 5 ML Bottle EYEBOTH SCH ×2 (14:26→21:46)
[2019-12-04] MEDS: PEG 400/Propylene Glycol Ophth Soln 15 ML Bottle EYEBOTH SCH ×4 (14:27→20:02)
[2019-12-04] MEDS: Dorzolamide 2% Ophth Soln 10 ML Bottle EYEBOTH SCH ×2 (14:29→21:46)
[2019-12-04] MEDS ORDERED: Sodium Chloride 0.9% 1,000 ML IV ONE (17:45)
[2019-12-04] MEDS: Ondansetron 4 MG/2 ML SDV IV PRN (20:06)
[2019-12-04] MEDS ORDERED: Non-Formulary Medication 1 Each (Cholecalciferol (Vitamin D3) [Vitamin D3] 400 UNIT) PO SCH (21:00)
[2019-12-04] MEDS: Simvastatin 20 MG Tab PO SCH (21:45)
[2019-12-04] MEDS: QUEtiapine 25 MG Tab PO SCH (21:45)
[2019-12-04] MEDS: Latanoprost 0.005% Ophth Soln 2.5 ML Bottle EYEBOTH SCH (21:46)
[2019-12-04] MEDS: cefTRIAXone 1 GM Vial IVPUSH SCH (22:21)
[2019-12-05] MEDS: Pantoprazole 40 MG Tab.CR PO SCH (05:52)
[2019-12-05] MEDS: Levothyroxine 75 MCG Tab PO SCH (05:52)
[2019-12-05] MEDS: Sodium Chloride 0.9% 1,000 ML IV SCH ×3 (07:29→23:56)
[2019-12-05] MEDS ORDERED: Non-Formulary Medication 1 Each (Vitamin E [Vitamin E] 400 UNIT) PO SCH (09:00)
[2019-12-05] MEDS ORDERED: Non-Formulary Medication 1 Each (Multivitamin [Multivitamins] 1 TAB) PO SCH (09:00)
[2019-12-05] MEDS ORDERED: VITAMIN B COMPLEX PO SCH (09:00)
[2019-12-05] MEDS: Polyethylene Glycol 3350 Powder 17 GM Packet PO SCH (10:21)
[2019-12-05] MEDS: Brimonidine 0.2% Ophth Soln 5 ML Bottle EYEBOTH SCH ×2 (10:21→20:25)
[2019-12-05] MEDS: Fish Oil/Omega-3 Fatty Acids 1 Gm Cap PO SCH (10:21)
[2019-12-05] MEDS: FLUoxetine 20 MG Cap PO SCH (10:21)
[2019-12-05] MEDS: PEG 400/Propylene Glycol Ophth Soln 15 ML Bottle EYEBOTH SCH ×4 (10:22→20:26)
[2019-12-05] MEDS: Timolol Maleate 0.5% Ophth Soln 5 ML Bottle EYEBOTH SCH ×2 (10:22→20:26)
[2019-12-05] MEDS: Dorzolamide 2% Ophth Soln 10 ML Bottle EYEBOTH SCH ×2 (10:22→20:23)
--- NOTE | 2019-12-05 11:59 | PCM.PN ---
- General Info Date of Service: 12/05/19 Admission Dx/Problem (Free Text): Patient is sleeping soundly, had emesis last night, didn't get much sleep. Talked with jail, normally he is quite talkative and let you know what he wants, she stated that if he's not talking much he usually isn't feeling well. They do have to encourage him a lot with eating and drinking, they try to get him to drink around 40 oz of water/day. Does sleep a lot at the jail as well. Is not on oxygen at home. Had some episodes of low blood pressure overnight but corrected this morning. No fevers, he did desaturate down to 88-90 % so oxygen was placed overnight, O2 saturations came up to 94%. - Patient Data Vitals - Most Recent: Last Vital Signs Temp 98.1 F 12/05/19 05:00 Pulse 66 12/05/19 05:00 Resp 16 12/05/19 05:00 BP 100/60 12/05/19 05:00 Pulse Ox 97 12/05/19 05:00 Weight - Most Recent: 170 lb 3 oz I&O - Last 24 Hours: Intake & Output 12/04/19 12/05/19 12/05/19 22:59 06:59 14:59 Intake Total 1220 880 Output Total 200 280 Balance 1020 600 Lab Results Last 24 Hours: Laboratory Results - last 24 hr 12/05/19 12/05/19 Range/Units 06:30 06:30 WBC 5.1 (4.5-12.0) X10-3/uL RBC 3.36 L (4.30-5.75) x10(6)uL Hgb 10.3 L (13.5-17.8) g/dL Hct 30.8 (30.0-51.3) % MCV 91.5 (80-96) fL MCH 30.7 (27.7-33.6) pg MCHC 33.5 (32.2-35.4) g/dL RDW 12.9 (11.5-15.5) % Plt Count 151 (125-369) X10(3)uL MPV 7.1 L (7.4-10.4) fL Add Manual Diff Yes Neutrophils % (Manual) 64 (46-82) % Lymphocytes % (Manual) 23 (13-37) % Monocytes % (Manual) 13 H (4-12) % Sodium 149 H (135-145) mmol/L Potassium 3.3 L (3.5-5.3) mmol/L Chloride 112 H (100-110) mmol/L Carbon Dioxide 30 (21-32) mmol/L BUN 10 (7-18) mg/dL Creatinine 0.9 (0.70-1.30) mg/dL Est Cr Clr Drug Dosing 74.46 mL/min Estimated GFR (MDRD) > 60 (>60) BUN/Creatinine Ratio 11.1 (9-20) Glucose 77 L (80-116) mg/dL Calcium 6.5 L* (8.6-10.2) mg/dL Conrad Results Last 24 Hours: Microbiology 12/03/19 23:05 Urine Culture - Preliminary Urine, Catheterized NO GROWTH AFTER 1 DAY 12/03/19 19:50 Aerobic Blood Culture - Preliminary Blood - Venous NO GROWTH AFTER 1 DAY Anaerobic Blood Culture - Preliminary NO GROWTH AFTER 1 DAY 12/03/19 19:55 Aerobic Blood Culture - Preliminary Blood - Venous - Lab Draw NO GROWTH AFTER 1 DAY Anaerobic Blood Culture - Preliminary NO GROWTH AFTER 1 DAY Med Orders - Current: Current Medications Acetaminophen (Tylenol) 650 mg PO Q4H PRN PRN Reason: Pain (Mild 1-3)/fever Brimonidine Tartrate ([place] 0.2% Ophth Soln) 0 ml EYEBOTH BID [facility] Last Admin: 12/05/19 10:21 Dose: 1 drop Carbidopa/Levodopa (Sinemet 25-100 Mg) 1 tab PO TID@1200,1600,2000 [facility] Last Admin: 12/04/19 20:01 Dose: 1 tab Ceftriaxone Sodium (Rocephin) 1 gm IVPUSH DAILY@2300 [facility] Last Admin: 12/04/19 22:21 Dose: 1 gm Dorzolamide HCl (Trusopt 2% Ophth Soln) 0 ml EYEBOTH BID [facility] Last Admin: 12/05/19 10:22 Dose: 1 drop Fish Oil (Fish Oil) 1 gm PO DAILY [facility] Last Admin: 12/05/19 10:21 Dose: 1 gm Fluoxetine HCl (Prozac) 40 mg PO DAILY [facility] Last Admin: 12/05/19 10:21 Dose: 40 mg Sodium Chloride (Normal Saline) 1,000 mls @ 125 mls/hr IV ASDIRECTED [facility] Last Admin: 12/05/19 07:29 Dose: 125 mls/hr Azithromycin 500 mg/ Sodium (Chloride) 250 mls @ 250 mls/hr IV DAILY@2300 [facility] Last Admin: 12/04/19 23:10 Dose: 250 mls/hr Latanoprost (Xalatan 0.005% Ophth Soln) 0 ml EYEBOTH BEDTIME [facility] Last Admin: 12/04/19 21:46 Dose: 1 drop Levothyroxine Sodium (Levothyroxine) 75 mcg PO DAILY@0600 [facility] Last Admin: 12/05/19 05:52 Dose: 75 mcg Morphine Sulfate (Morphine) 2 mg IVPUSH Q2H PRN PRN Reason: Pain (severe 7-10) Ondansetron HCl (Zofran) 4 mg IV Q6H PRN PRN Reason: Nausea/Vomiting Last Admin: 12/04/19 20:06 Dose: 4 mg Pantoprazole Sodium (Protonix) 40 mg PO DAILY@0600 [facility] Last Admin: 12/05/19 05:52 Dose: 40 mg Polyethylene Glycol (Miralax) 17 gm PO DAILY [facility] Last Admin: 12/05/19 10:21 Dose: 17 gm Propylene Glycol (Systane Lubricant) 0 ml EYEBOTH QID [facility] Last Admin: 12/05/19 10:22 Dose: 1 drop Quetiapine Fumarate (Seroquel) 25 mg PO BEDTIME [facility] Last Admin: 12/04/19 21:45 Dose: 25 mg Senna/Docusate Sodium (Senna Plus) 2 tab PO BID [facility] Last Admin: 12/05/19 10:21 Dose: 2 tab Simvastatin (Zocor) 20 mg PO BEDTIME [facility] Last Admin: 12/04/19 21:45 Dose: 20 mg Sodium Chloride (Saline Flush) 10 ml FLUSH ASDIRECTED PRN PRN Reason: Keep Vein Open Timolol Maleate (Timoptic 0.5% Ophth Soln) 0 ml EYEBOTH BID [facility] Last Admin: 12/05/19 10:22 Dose: 1 drop Discontinued Medications Ceftriaxone Sodium (Rocephin) 2 gm IVPUSH DAILY@2300 [facility] Last Admin: 12/04/19 00:07 Dose: 2 gm Sodium Chloride (Normal Saline) 1,000 mls @ 999 mls/hr IV .BOLUS ONE Stop: 12/03/19 20:37 Last Admin: 12/03/19 19:56 Dose: 999 mls/hr Sodium Chloride (Normal Saline) 1,000 mls @ 999 mls/hr IV .BOLUS ONE Stop: 12/03/19 22:43 Last Admin: 12/03/19 21:50 Dose: 999 mls/hr Sodium Chloride (Normal Saline) 1,000 mls @ 250 mls/hr IV ASDIRECTED ONE Stop: 12/04/19 21:44 Last Admin: 12/04/19 17:46 Dose: 250 mls/hr Iopamidol (Isovue-370 (76%)) 100 ml IV . DIRECTED ONE Stop: 12/03/19 20:59 Last Admin: 12/03/19 21:28 Dose: 100 ml Lidocaine HCl (Glydo) 5 ml .XX ONETIME ONE Stop: 12/03/19 22:52 Last Admin: 12/03/19 22:55 Dose: 5 ml Morphine Sulfate (Morphine) 4 mg IVPUSH ONETIME ONE Stop: 12/03/19 19:38 Last Admin: 12/03/19 19:54 Dose: 4 mg Non-Formulary Medication (Brimonidine Tartrate/Timolol [Combigan 0.2%-0.5% Eye Drops]) 1 drop EYEBOTH BID [facility] Non-Formulary Medication (Cholecalciferol (Vitamin D3) [Vitamin D3]) 400 unit PO BID [facility] Non-Formulary Medication (Multivitamin [Multivitamins]) 1 tab PO DAILY [facility] Non-Formulary Medication (Vitamin B Complex [Balanced B-50]) 1 each PO DAILY [facility] Non-Formulary Medication (Vitamin E [Vitamin E]) 400 unit PO DAILY [facility] Ondansetron HCl (Zofran) 4 mg IVPUSH ONETIME ONE Stop: 12/03/19 19:38 Last Admin: 12/03/19 19:54 Dose: 4 mg - Exam Quality Assessment: Supplemental Oxygen General: Cooperative, No Acute Distress Lungs: Normal Respiratory Effort, Decreased Breath Sounds. No: Wheezing Cardiovascular: Regular Rate, Regular Rhythm GI/Abdominal Exam: Normal Bowel Sounds, Soft, Non-Tender, No Distention Extremities: No Pedal Edema Sepsis Event Note - Evaluation Sepsis Screening Result: No Definite Risk Current Stage of Sepsis: Ruled Out Reason for Ruling Out Sepsis: Afebrile, normal white count, no end organ failure, negative blood & urine cultures. - Focused Exam Vital Signs: Vital Signs Temp Pulse Resp BP Pulse Ox 12/05/19 05:00 98.1 F 66 16 100/60 97 12/05/19 01:00 98.5 F 90/60 12/05/19 00:00 99.1 F 83 18 83/43 L 96 Date Exam was Performed: 12/05/19 Time Exam was Performed: 11:46 - Problem List & Annotations (1) Pneumonia SNOMED Code(s): 400110111 Code(s): J18.9 - PNEUMONIA, UNSPECIFIED ORGANISM Status: Acute Current Visit: Yes Qualifiers: Pneumonia type: due to unspecified organism Laterality: left Lung location: lower lobe of lung Qualified Code(s): J18.9 - Pneumonia, unspecified organism (2) Intractable vomiting with nausea SNOMED Code(s): 364504677 Code(s): R11.2 - NAUSEA WITH VOMITING, UNSPECIFIED Status: Acute Current Visit: Yes (3) Severe dehydration SNOMED Code(s): 483925620 Code(s): E86.0 - DEHYDRATION Status: Acute Current Visit: Yes (4) Mental impairment SNOMED Code(s): 27787389 Code(s): F79 - UNSPECIFIED INTELLECTUAL DISABILITIES Status: Chronic Current Visit: Yes (5) Palliative care status SNOMED Code(s): 949323938 Code(s): Z51.5 - ENCOUNTER FOR PALLIATIVE CARE Status: Acute Current Visit: Yes - Problem List Review Problem List Initiated/Reviewed/Updated: Yes - Plan Plan:: 1. LLL pneumonia per CXR, IV Rocephin & Azithromycin day 3. 2. Blood cultures: no growth to date. Urine culture: no growth. 3. Regular diet. 4. IV fluids. 5. Up with assist. 6. Repeat labs in the a.m. 7. VTE with Lovenox
[2019-12-05] MEDS: Carbidopa/Levodopa 25-100 MG Tab PO SCH ×3 (12:04→20:32)
[2019-12-05] MEDS: Ondansetron 4 MG/2 ML SDV IV PRN (14:35)
[2019-12-05] MEDS: Latanoprost 0.005% Ophth Soln 2.5 ML Bottle EYEBOTH SCH (20:24)
[2019-12-05] MEDS: Simvastatin 20 MG Tab PO SCH (20:31)
[2019-12-05] MEDS: QUEtiapine 25 MG Tab PO SCH (20:32)
[2019-12-05] MEDS: cefTRIAXone 1 GM Vial IVPUSH SCH (22:43)
[2019-12-05] MEDS: Azithromycin 500 MG in Sodium Chloride 0.9% 250 ML IV SCH (22:47)
[2019-12-06] MEDS: Levothyroxine 75 MCG Tab PO SCH (05:18)
[2019-12-06] MEDS: Pantoprazole 40 MG Tab.CR PO SCH (05:18)
[2019-12-06] MEDS: Sodium Chloride 0.9% 1,000 ML IV SCH (08:01)
[2019-12-06] MEDS ORDERED: D5 1/2 NS w/ 20 mEq/L KCl 1,000 ML IV SCH (08:15)
--- NOTE | 2019-12-06 09:32 | PCM.PN ---
- General Info Date of Service: 12/06/19 Subjective Update: Patient is more awake this morning, states he feels a little better. No emesis or diarrhea. Had a migraine overnight and received morphine for it. States it's still there a little. His appetite is poor which is not unusual [facility]. - Patient Data Vitals - Most Recent: Last Vital Signs Temp 98.1 F 12/06/19 05:00 Pulse 77 12/06/19 05:00 Resp 16 12/06/19 05:00 BP 116/71 12/06/19 05:00 Pulse Ox 91 L 12/06/19 05:00 Weight - Most Recent: 170 lb 3 oz I&O - Last 24 Hours: Intake & Output 12/05/19 12/06/19 12/06/19 22:59 06:59 14:59 Intake Total 280 1593 Output Total 260 900 Balance 20 693 Lab Results Last 24 Hours: Laboratory Results - last 24 hr 12/06/19 Range/Units 06:40 Sodium 146 H (135-145) mmol/L Potassium 3.1 L (3.5-5.3) mmol/L Chloride 110 (100-110) mmol/L Carbon Dioxide 26 (21-32) mmol/L BUN 8 (7-18) mg/dL Creatinine 0.8 (0.70-1.30) mg/dL Est Cr Clr Drug Dosing 83.77 mL/min Estimated GFR (MDRD) > 60 (>60) BUN/Creatinine Ratio 10.0 (9-20) Glucose 66 L (80-116) mg/dL Calcium 6.6 L (8.6-10.2) mg/dL Conrad Results Last 24 Hours: Microbiology 12/03/19 23:05 Urine Culture - Final Urine, Catheterized NO GROWTH AFTER 2 DAYS 12/03/19 19:50 Aerobic Blood Culture - Preliminary Blood - Venous NO GROWTH AFTER 2 DAYS Anaerobic Blood Culture - Preliminary NO GROWTH AFTER 2 DAYS 12/03/19 19:55 Aerobic Blood Culture - Preliminary Blood - Venous - Lab Draw NO GROWTH AFTER 2 DAYS Anaerobic Blood Culture - Preliminary NO GROWTH AFTER 2 DAYS Med Orders - Current: Current Medications Acetaminophen (Tylenol) 650 mg PO Q4H PRN PRN Reason: Pain (Mild 1-3)/fever Brimonidine Tartrate (Alphagan 0.2% Ophth Soln) 0 ml EYEBOTH BID [facility] Last Admin: 03/13/20 20:25 Dose: 1 drop Carbidopa/Levodopa (Sinemet 25-100 Mg) 1 tab PO TID@1200,1600,2000 [facility] Last Admin: 12/05/19 20:32 Dose: 1 tab Ceftriaxone Sodium (Rocephin) 1 gm IVPUSH DAILY@2300 [facility] Last Admin: 12/05/19 22:43 Dose: 1 gm Dorzolamide HCl (Trusopt 2% Ophth Soln) 0 ml EYEBOTH BID [facility] Last Admin: 12/05/19 20:23 Dose: 1 drop Fish Oil (Fish Oil) 1 gm PO DAILY [facility] Last Admin: 12/05/19 10:21 Dose: 1 gm Fluoxetine HCl (Prozac) 40 mg PO DAILY [facility] Last Admin: 12/05/19 10:21 Dose: 40 mg Azithromycin 500 mg/ Sodium (Chloride) 250 mls @ 250 mls/hr IV DAILY@2300 [facility] Last Admin: 12/05/19 22:47 Dose: 250 mls/hr Potassium Chloride/Dextrose/Sod Cl (D5 1/2 Ns W/ 20 Meq/L Kcl) 1,000 mls @ 75 mls/hr IV ASDIRECTED [facility] Latanoprost (Xalatan 0.005% Ophth Soln) 0 ml EYEBOTH BEDTIME [facility] Last Admin: 12/05/19 20:24 Dose: 1 drop Levothyroxine Sodium (Levothyroxine) 75 mcg PO DAILY@0600 [facility] Last Admin: 12/06/19 05:18 Dose: 75 mcg Morphine Sulfate (Morphine) 2 mg IVPUSH Q2H PRN PRN Reason: Pain (severe 7-10) Last Admin: 12/05/19 20:22 Dose: 2 mg Ondansetron HCl (Zofran) 4 mg IV Q6H PRN PRN Reason: Nausea/Vomiting Last Admin: 12/05/19 14:35 Dose: 4 mg Pantoprazole Sodium (Protonix) 40 mg PO DAILY@0600 [facility] Last Admin: 12/06/19 05:18 Dose: 40 mg Polyethylene Glycol (Miralax) 17 gm PO DAILY [facility] Last Admin: 12/05/19 10:21 Dose: 17 gm Propylene Glycol (Systane Lubricant) 0 ml EYEBOTH QID [facility] Last Admin: 12/05/19 20:26 Dose: 1 drop Quetiapine Fumarate (Seroquel) 25 mg PO BEDTIME [facility] Last Admin: 12/05/19 20:32 Dose: 25 mg Senna/Docusate Sodium (Senna Plus) 2 tab PO BID [facility] Last Admin: 12/05/19 20:31 Dose: 2 tab Simvastatin (Zocor) 20 mg PO BEDTIME [facility] Last Admin: 12/05/19 20:31 Dose: 20 mg Sodium Chloride (Saline Flush) 10 ml FLUSH ASDIRECTED PRN PRN Reason: Keep Vein Open Timolol Maleate (Timoptic 0.5% Ophth Soln) 0 ml EYEBOTH BID [facility] Last Admin: 12/05/19 20:26 Dose: 1 drop Discontinued Medications Ceftriaxone Sodium (Rocephin) 2 gm IVPUSH DAILY@2300 [facility] Last Admin: 12/04/19 00:07 Dose: 2 gm Sodium Chloride (Normal Saline) 1,000 mls @ 999 mls/hr IV .BOLUS ONE Stop: 12/03/19 20:37 Last Admin: 12/03/19 19:56 Dose: 999 mls/hr Sodium Chloride (Normal Saline) 1,000 mls @ 125 mls/hr IV ASDIRECTED [facility] Last Admin: 12/06/19 08:01 Dose: 125 mls/hr Sodium Chloride (Normal Saline) 1,000 mls @ 999 mls/hr IV .BOLUS ONE Stop: 12/03/19 22:43 Last Admin: 12/03/19 21:50 Dose: 999 mls/hr Sodium Chloride (Normal Saline) 1,000 mls @ 250 mls/hr IV ASDIRECTED ONE Stop: 12/04/19 21:44 Last Admin: 12/04/19 17:46 Dose: 250 mls/hr Iopamidol (Isovue-370 (76%)) 100 ml IV . DIRECTED ONE Stop: 12/03/19 20:59 Last Admin: 12/03/19 21:28 Dose: 100 ml Lidocaine HCl (Glydo) 5 ml .XX ONETIME ONE Stop: 12/03/19 22:52 Last Admin: 12/03/19 22:55 Dose: 5 ml Morphine Sulfate (Morphine) 4 mg IVPUSH ONETIME ONE Stop: 12/03/19 19:38 Last Admin: 12/03/19 19:54 Dose: 4 mg Non-Formulary Medication (Brimonidine Tartrate/Timolol [Combigan 0.2%-0.5% Eye Drops]) 1 drop EYEBOTH BID [facility] Non-Formulary Medication (Cholecalciferol (Vitamin D3) [Vitamin D3]) 400 unit PO BID [facility] Non-Formulary Medication (Multivitamin [Multivitamins]) 1 tab PO DAILY [facility] Non-Formulary Medication (Vitamin B Complex [Balanced B-50]) 1 each PO DAILY [facility] Non-Formulary Medication (Vitamin E [Vitamin E]) 400 unit PO DAILY [facility] Ondansetron HCl (Zofran) 4 mg IVPUSH ONETIME ONE Stop: 12/03/19 19:38 Last Admin: 12/03/19 19:54 Dose: 4 mg - Exam General: Alert, Oriented, Cooperative, No Acute Distress Lungs: Normal Respiratory Effort, Decreased Breath Sounds. No: Rales, Wheezing Cardiovascular: Regular Rate, Regular Rhythm GI/Abdominal Exam: Normal Bowel Sounds, Soft, Non-Tender, No Distention Extremities: No Pedal Edema Sepsis Event Note - Evaluation Sepsis Screening Result: No Definite Risk - Focused Exam Vital Signs: Vital Signs Temp Pulse Resp BP Pulse Ox 12/06/19 05:00 98.1 F 77 16 116/71 91 L 12/06/19 01:00 98.5 F 78 16 102/59 L 88 L 12/05/19 23:00 95 Date Exam was Performed: 12/06/19 Time Exam was Performed: 09:27 - Problem List & Annotations (1) Pneumonia SNOMED Code(s): 857353135 Code(s): J18.9 - PNEUMONIA, UNSPECIFIED ORGANISM Status: Acute Current Visit: Yes Qualifiers: Pneumonia type: due to unspecified organism Laterality: left Lung location: lower lobe of lung Qualified Code(s): J18.9 - Pneumonia, unspecified organism (2) Intractable vomiting with nausea SNOMED Code(s): 929031559 Code(s): R11.2 - NAUSEA WITH VOMITING, UNSPECIFIED Status: Acute Current Visit: Yes (3) Severe dehydration SNOMED Code(s): 338212277 Code(s): E86.0 - DEHYDRATION Status: Acute Current Visit: Yes (4) Mental impairment SNOMED Code(s): 09692542 Code(s): F79 - UNSPECIFIED INTELLECTUAL DISABILITIES Status: Chronic Current Visit: Yes (5) Palliative care status SNOMED Code(s): 486449048 Code(s): Z51.5 - ENCOUNTER FOR PALLIATIVE CARE Status: Acute Current Visit: Yes - Problem List Review Problem List Initiated/Reviewed/Updated: Yes - My Orders Last 24 Hours: My Active Orders 12/06/19 08:15 D5 1/2 NS w/ 20 mEq/L KCl 1,000 ml IV ASDIRECTED 12/06/19 Breakfast Mechanical Soft Diet [DIET] 12/07/19 06:00 COMPREHENSIVE METABOLIC PN,CMP [CHEM] Routine - Plan Plan:: 1. LLL pneumonia per CXR, IV Rocephin day 3 & Azithromycin day 4. 2. Blood cultures: no growth to date. Urine culture: no growth to date. 3. Mechanical soft diet. 4. IV fluids change to D51/2NS, repeat CMP tomorrow am. 5. Up with assist. 6. VTE with Lovenox
[2019-12-06] MEDS ORDERED: NAPROXEN SODIUM 220 MG PO PRN (09:59)
[2019-12-06] MEDS: Dorzolamide 2% Ophth Soln 10 ML Bottle EYEBOTH SCH ×2 (10:18→20:02)
[2019-12-06] MEDS: Brimonidine 0.2% Ophth Soln 5 ML Bottle EYEBOTH SCH ×2 (10:18→20:02)
[2019-12-06] MEDS: Fish Oil/Omega-3 Fatty Acids 1 Gm Cap PO SCH (10:19)
[2019-12-06] MEDS: Polyethylene Glycol 3350 Powder 17 GM Packet PO SCH (10:20)
[2019-12-06] MEDS: PEG 400/Propylene Glycol Ophth Soln 15 ML Bottle EYEBOTH SCH ×4 (10:20→20:02)
[2019-12-06] MEDS: FLUoxetine 20 MG Cap PO SCH (10:20)
[2019-12-06] MEDS: Timolol Maleate 0.5% Ophth Soln 5 ML Bottle EYEBOTH SCH ×2 (10:21→20:02)
[2019-12-06] MEDS ORDERED: Naproxen 250 MG Tab PO PRN (10:43)
[2019-12-06] MEDS: Potassium Chloride 20 MEQ Tab.ER PO SCH ×2 (12:48→20:05)
[2019-12-06] MEDS: Carbidopa/Levodopa 25-100 MG Tab PO SCH ×3 (12:49→20:05)
[2019-12-06] MEDS: Sodium Chloride 0.9% 10 ML Syringe FLUSH PRN ×2 (12:50→22:18)
[2019-12-06] MEDS: Latanoprost 0.005% Ophth Soln 2.5 ML Bottle EYEBOTH SCH (20:02)
[2019-12-06] MEDS: QUEtiapine 25 MG Tab PO SCH (20:05)
[2019-12-06] MEDS: Simvastatin 20 MG Tab PO SCH (20:05)
[2019-12-06] MEDS: cefTRIAXone 1 GM Vial IVPUSH SCH (22:16)
[2019-12-06] MEDS: Azithromycin 500 MG in Sodium Chloride 0.9% 250 ML IV SCH (22:17)
[2019-12-07] MEDS: Levothyroxine 75 MCG Tab PO SCH (06:27)
[2019-12-07] MEDS: Pantoprazole 40 MG Tab.CR PO SCH (06:27)
[2019-12-07] MEDS: Sodium Chloride 0.9% 10 ML Syringe FLUSH PRN (09:43)
[2019-12-07] MEDS: FLUoxetine 20 MG Cap PO SCH (09:44)
[2019-12-07] MEDS: Brimonidine 0.2% Ophth Soln 5 ML Bottle EYEBOTH SCH ×2 (09:44→20:59)
[2019-12-07] MEDS: Timolol Maleate 0.5% Ophth Soln 5 ML Bottle EYEBOTH SCH ×2 (09:44→20:59)
[2019-12-07] MEDS: Dorzolamide 2% Ophth Soln 10 ML Bottle EYEBOTH SCH ×2 (09:44→20:59)
[2019-12-07] MEDS: PEG 400/Propylene Glycol Ophth Soln 15 ML Bottle EYEBOTH SCH ×4 (09:44→20:59)
[2019-12-07] MEDS: Polyethylene Glycol 3350 Powder 17 GM Packet PO SCH (09:45)
[2019-12-07] MEDS: Fish Oil/Omega-3 Fatty Acids 1 Gm Cap PO SCH (09:45)
[2019-12-07] MEDS: Potassium Chloride 20 MEQ Tab.ER PO SCH (09:47)
[2019-12-07] MEDS: Carbidopa/Levodopa 25-100 MG Tab PO SCH ×3 (12:16→20:57)
--- NOTE | 2019-12-07 14:17 | PCM.PN ---
- General Info Date of Service: 12/07/19 Subjective Update: Raul is doing better today, states he feels better, no nausea, vomiting or stomach pain. He is off oxygen and 93% on RA. He would like to go home. Advised that residential does not do readmission on weekends but residential staff are coming up for another patient and will stop in and talk with him. - Patient Data Vitals - Most Recent: Last Vital Signs Temp 99.4 F 12/07/19 11:34 Pulse 62 12/07/19 11:34 Resp 16 12/07/19 11:34 BP 111/66 12/07/19 11:34 Pulse Ox 95 12/07/19 11:34 Weight - Most Recent: 175 lb 9.6 oz I&O - Last 24 Hours: Intake & Output 12/06/19 12/07/19 12/07/19 22:59 06:59 14:59 Intake Total 890 490 Output Total 2000 950 Balance -1110 -460 Lab Results Last 24 Hours: Laboratory Results - last 24 hr 12/07/19 Range/Units 06:18 Sodium 146 H (135-145) mmol/L Potassium 3.4 L (3.5-5.3) mmol/L Chloride 110 (100-110) mmol/L Carbon Dioxide 29 (21-32) mmol/L BUN 5 L (7-18) mg/dL Creatinine 0.8 (0.70-1.30) mg/dL Est Cr Clr Drug Dosing 83.77 mL/min Estimated GFR (MDRD) > 60 (>60) BUN/Creatinine Ratio 6.3 L (9-20) Glucose 94 (80-116) mg/dL Calcium 7.7 L (8.6-10.2) mg/dL Total Bilirubin 0.4 (0.1-1.3) mg/dL AST 34 H D (5-25) IU/L ALT 18 D (12-36) U/L Alkaline Phosphatase 47 L (56-112) IU/L Total Protein 5.4 L (6.0-8.0) g/dL Albumin 2.2 L (3.2-4.6) g/dL Globulin 3.2 g/dL Albumin/Globulin Ratio 0.7 Conrad Results Last 24 Hours: Microbiology 12/03/19 19:55 Aerobic Blood Culture - Preliminary Blood - Venous - Lab Draw NO GROWTH AFTER 3 DAYS Anaerobic Blood Culture - Preliminary NO GROWTH AFTER 3 DAYS 12/03/19 19:50 Aerobic Blood Culture - Preliminary Blood - Venous NO GROWTH AFTER 3 DAYS Anaerobic Blood Culture - Preliminary NO GROWTH AFTER 3 DAYS Med Orders - Current: Current Medications Acetaminophen (Tylenol) 650 mg PO Q4H PRN PRN Reason: Pain (Mild 1-3)/fever Brimonidine Tartrate (Alphagan 0.2% Ophth Soln) 0 ml EYEBOTH BID [facility] Last Admin: 12/07/19 09:44 Dose: 1 drop Carbidopa/Levodopa (Sinemet 25-100 Mg) 1 tab PO TID@1200,1600,2000 [facility] Last Admin: 12/07/19 12:16 Dose: 1 tab Ceftriaxone Sodium (Rocephin) 1 gm IVPUSH DAILY@2300 [facility] Last Admin: 12/06/19 22:16 Dose: 1 gm Dorzolamide HCl (Trusopt 2% Ophth Soln) 0 ml EYEBOTH BID [facility] Last Admin: 12/07/19 09:44 Dose: 1 drop Fish Oil (Fish Oil) 1 gm PO DAILY [facility] Last Admin: 12/07/19 09:45 Dose: 1 gm Fluoxetine HCl (Prozac) 40 mg PO DAILY [facility] Last Admin: 12/07/19 09:44 Dose: 40 mg Azithromycin 500 mg/ Sodium (Chloride) 250 mls @ 250 mls/hr IV DAILY@2300 [facility] Last Admin: 12/06/19 22:17 Dose: 250 mls/hr Potassium Chloride/Dextrose/Sod Cl (D5 1/2 Ns W/ 20 Meq/L Kcl) 1,000 mls @ 75 mls/hr IV ASDIRECTED [facility] Last Admin: 12/06/19 10:14 Dose: 75 mls/hr Latanoprost (Xalatan 0.005% Ophth Soln) 0 ml EYEBOTH BEDTIME [facility] Last Admin: 12/06/19 20:02 Dose: 1 drop Levothyroxine Sodium (Levothyroxine) 75 mcg PO DAILY@0600 [facility] Last Admin: 12/07/19 06:27 Dose: 75 mcg Morphine Sulfate (Morphine) 2 mg IVPUSH Q2H PRN PRN Reason: Pain (severe 7-10) Last Admin: 12/05/19 20:22 Dose: 2 mg Naproxen (Naprosyn) 250 mg PO Q12H PRN PRN Reason: Pain Last Admin: 12/07/19 09:54 Dose: 250 mg Ondansetron HCl (Zofran) 4 mg IV Q6H PRN PRN Reason: Nausea/Vomiting Last Admin: 12/05/19 14:35 Dose: 4 mg Pantoprazole Sodium (Protonix) 40 mg PO DAILY@0600 [facility] Last Admin: 12/07/19 06:27 Dose: 40 mg Polyethylene Glycol (Miralax) 17 gm PO DAILY [facility] Last Admin: 12/07/19 09:45 Dose: 17 gm Potassium Chloride (Klor-Con M20) 20 meq PO BID [facility] Last Admin: 12/07/19 09:47 Dose: 20 meq Propylene Glycol (Systane Lubricant) 0 ml EYEBOTH QID [facility] Last Admin: 12/07/19 12:16 Dose: 1 drop Quetiapine Fumarate (Seroquel) 25 mg PO BEDTIME [facility] Last Admin: 12/06/19 20:05 Dose: 25 mg Senna/Docusate Sodium (Senna Plus) 2 tab PO BID [facility] Last Admin: 12/07/19 09:45 Dose: 2 tab Simvastatin (Zocor) 20 mg PO BEDTIME [facility] Last Admin: 12/06/19 20:05 Dose: 20 mg Sodium Chloride (Saline Flush) 10 ml FLUSH ASDIRECTED PRN PRN Reason: Keep Vein Open Last Admin: 12/07/19 09:43 Dose: 10 ml Timolol Maleate (Timoptic 0.5% Oph Soln) 0 ml EYEBOTH BID [facility] Last Admin: 12/07/19 09:44 Dose: 1 drop Discontinued Medications Ceftriaxone Sodium (Rocephin) 2 gm IVPUSH DAILY@2300 [facility] Last Admin: 12/04/19 00:07 Dose: 2 gm Sodium Chloride (Normal Saline) 1,000 mls @ 999 mls/hr IV .BOLUS ONE Stop: 12/03/19 20:37 Last Admin: 12/03/19 19:56 Dose: 999 mls/hr Sodium Chloride (Normal Saline) 1,000 mls @ 125 mls/hr IV ASDIRECTED [facility] Last Admin: 12/06/19 08:01 Dose: 125 mls/hr Sodium Chloride (Normal Saline) 1,000 mls @ 999 mls/hr IV .BOLUS ONE Stop: 12/03/19 22:43 Last Admin: 12/03/19 21:50 Dose: 999 mls/hr Sodium Chloride (Normal Saline) 1,000 mls @ 250 mls/hr IV ASDIRECTED ONE Stop: 12/04/19 21:44 Last Admin: 12/04/19 17:46 Dose: 250 mls/hr Iopamidol (Isovue-370 (76%)) 100 ml IV . DIRECTED ONE Stop: 12/03/19 20:59 Last Admin: 12/03/19 21:28 Dose: 100 ml Lidocaine HCl (Glydo) 5 ml .XX ONETIME ONE Stop: 12/03/19 22:52 Last Admin: 12/03/19 22:55 Dose: 5 ml Morphine Sulfate (Morphine) 4 mg IVPUSH ONETIME ONE Stop: 12/03/19 19:38 Last Admin: 12/03/19 19:54 Dose: 4 mg Non-Formulary Medication (Brimonidine Tartrate/Timolol [Combigan 0.2%-0.5% Eye Drops]) 1 drop EYEBOTH BID [facility] Non-Formulary Medication (Cholecalciferol (Vitamin D3) [Vitamin D3]) 400 unit PO BID [facility] Non-Formulary Medication (Multivitamin [Multivitamins]) 1 tab PO DAILY [facility] Non-Formulary Medication (Vitamin B Complex [Balanced B-50]) 1 each PO DAILY [facility] Non-Formulary Medication (Vitamin E [Vitamin E]) 400 unit PO DAILY [facility] Non-Formulary Medication (Naproxen Sodium [Naproxen Sodium]) 220 mg PO BID PRN PRN Reason: HIP PAIN Ondansetron HCl (Zofran) 4 mg IVPUSH ONETIME ONE Stop: 12/03/19 19:38 Last Admin: 12/03/19 19:54 Dose: 4 mg - Exam General: Alert, Oriented, Cooperative, No Acute Distress Lungs: Normal Respiratory Effort, Decreased Breath Sounds. No: Crackles, Rales , Wheezing Cardiovascular: Regular Rate, Regular Rhythm GI/Abdominal Exam: Normal Bowel Sounds, Soft, Non-Tender, No Distention Extremities: No Pedal Edema Peripheral Pulses: 2+: Radial (L), Radial (R) Sepsis Event Note - Evaluation Sepsis Screening Result: No Definite Risk - Focused Exam Vital Signs: Vital Signs Temp Pulse Resp BP Pulse Ox 12/07/19 11:34 99.4 F 62 16 111/66 95 12/07/19 08:00 98.7 F 66 16 116/68 93 L 12/07/19 05:00 98.5 F 66 14 111/59 L 93 L Date Exam was Performed: 12/07/19 Time Exam was Performed: 14:12 - Problem List & Annotations (1) Pneumonia SNOMED Code(s): 401474476 Code(s): J18.9 - PNEUMONIA, UNSPECIFIED ORGANISM Status: Acute Current Visit: Yes Qualifiers: Pneumonia type: due to unspecified organism Laterality: left Lung location: lower lobe of lung Qualified Code(s): J18.9 - Pneumonia, unspecified organism (2) Intractable vomiting with nausea SNOMED Code(s): 409011695 Code(s): R11.2 - NAUSEA WITH VOMITING, UNSPECIFIED Status: Acute Current Visit: Yes (3) Severe dehydration SNOMED Code(s): 822293128 Code(s): E86.0 - DEHYDRATION Status: Acute Current Visit: Yes (4) Mental impairment SNOMED Code(s): 41338780 Code(s): F79 - UNSPECIFIED INTELLECTUAL DISABILITIES Status: Chronic Current Visit: Yes (5) Palliative care status SNOMED Code(s): 603041066 Code(s): Z51.5 - ENCOUNTER FOR PALLIATIVE CARE Status: Acute Current Visit: Yes - Problem List Review Problem List Initiated/Reviewed/Updated: Yes - My Orders Last 24 Hours: My Active Orders 12/08/19 06:00 BASIC METABOLIC PANEL,BMP [CHEM] Routine - Plan Plan:: 1. LLL pneumonia per CXR, IV Rocephin day 4 & Azithromycin day 5. 2. Blood cultures: no growth to date. Urine culture: no growth to date. 3. Mechanical soft diet. 4. IV fluids change to D51/2NS, oral potassium yesterday, improved, repeat BMP tomorrow am. 5. Up with assist. 6. VTE with Lovenox Plan to discharge tomorrow back on oral cefdinir for 3 more days. Will get 4th dose of Rocephin tonight and start cefdinir in am.
[2019-12-07] MEDS: Simvastatin 20 MG Tab PO SCH (20:59)
[2019-12-07] MEDS: Latanoprost 0.005% Ophth Soln 2.5 ML Bottle EYEBOTH SCH (20:59)
[2019-12-07] MEDS: QUEtiapine 25 MG Tab PO SCH (20:59)
[2019-12-07] MEDS: cefTRIAXone 1 GM Vial IVPUSH SCH (22:28)
[2019-12-07] MEDS: Azithromycin 500 MG in Sodium Chloride 0.9% 250 ML IV SCH (22:39)
[2019-12-08] MEDS: Levothyroxine 75 MCG Tab PO SCH (06:30)
[2019-12-08] MEDS: Pantoprazole 40 MG Tab.CR PO SCH (06:30)
[2019-12-08] MEDS ORDERED: Cefdinir 300 MG Cap PO SCH (09:00)
[2019-12-08] MEDS ORDERED: Potassium Chloride 10 MEQ Tab.ER PO SCH (09:00)
[2019-12-08] MEDS: Brimonidine 0.2% Ophth Soln 5 ML Bottle EYEBOTH SCH (10:21)
[2019-12-08] MEDS: PEG 400/Propylene Glycol Ophth Soln 15 ML Bottle EYEBOTH SCH ×2 (10:21→12:36)
[2019-12-08] MEDS: Timolol Maleate 0.5% Ophth Soln 5 ML Bottle EYEBOTH SCH (10:21)
[2019-12-08] MEDS: Dorzolamide 2% Ophth Soln 10 ML Bottle EYEBOTH SCH (10:22)
[2019-12-08] MEDS: Fish Oil/Omega-3 Fatty Acids 1 Gm Cap PO SCH (10:23)
[2019-12-08] MEDS: Polyethylene Glycol 3350 Powder 17 GM Packet PO SCH (10:24)
[2019-12-08] MEDS: FLUoxetine 20 MG Cap PO SCH (10:24)
[2019-12-08] MEDS: Carbidopa/Levodopa 25-100 MG Tab PO SCH (11:38)
--- NOTE | 2019-12-08 14:36 | PCM.DCSUM1 ---
Discharge Summary - Hospital Course HPI Initial Comments: This is a 69-[facility]-old [facility] patient was sent to the ER because of lower chest pain and upper abdominal pain associated with vomiting. Apparently had 15- 20 episodes of emesis during the day yesterday but no diarrhea. He was found to have a fever 101.6. He is brought to the ER and had a CT of the abdomen and was negative except the left lower lobe pneumonia. He was admitted for left lower lobe pneumonia. He denies coughing runny nose, sore throat, shortness of breath. Diagnosis: Stroke: No - Discharge Data Discharge Date: 12/08/19 Discharge Disposition: Home, W Home Health Agency 06 Condition: Good - Referral to Home Health Date of Face to Face Encounter: 12/08/19 Reason for Homebound Status: [facility] resident Primary Care Physician: PCP None Skilled Need: [facility] care. Resume previous orders. - Discharge Diagnosis/Problem(s) (1) Pneumonia SNOMED Code(s): 580987000 ICD Code: J18.9 - PNEUMONIA, UNSPECIFIED ORGANISM Status: Acute Current Visit: Yes Problem Details: Left lower lobe, improving. Qualifiers: Pneumonia type: due to unspecified organism Laterality: left Lung location: lower lobe of lung Qualified Code(s): J18.9 - Pneumonia, unspecified organism (2) Intractable vomiting with nausea SNOMED Code(s): 517762347 ICD Code: R11.2 - NAUSEA WITH VOMITING, UNSPECIFIED Status: Resolved Current Visit: Yes (3) Severe dehydration SNOMED Code(s): 222046220 ICD Code: E86.0 - DEHYDRATION Status: Resolved Current Visit: Yes (4) Mental impairment SNOMED Code(s): 80212163 ICD Code: F79 - UNSPECIFIED INTELLECTUAL DISABILITIES Status: Chronic Current Visit: Yes (5) Palliative care status SNOMED Code(s): 607856493 ICD Code: Z51.5 - ENCOUNTER FOR PALLIATIVE CARE Status: Chronic Current Visit: Yes - Patient Summary/Data Hospital Course: Raul was started on azithromycin started Sunday and Rocephin started morning, received 5 dose of Azithromycin and 4 doses of Rocephin, before being switched to oral Cefdinir, 1 dose given, will go home with 5 more doses to complete [address] in ER showed pneumonia but no acute abdominal changes. Blood cultures negative to date. Had emesis on Sunday and some dry heaving on Sunday but this all resolved. Was more talkative and alert during hospital course. Had desaturations on night was started on oxygen and this was weaned off oxygen by Sunday. He wanted to go home on Sunday but [facility] was not able to [facility]. His sodium went up but encouraging free water intake. Potassium at 3.2 today, will send home on Potassium 10 mEq bid and have it rechecked on Sunday with his PCP. - Patient Instructions Diet: Mechanical Soft Activity: As Tolerated Notify Provider of: Fever, Nausea and/or Vomiting Other/Special Instructions: Recheck potassium on December 11, call results to PCP. Follow up with PCP within week preferred but call PCP first given current restrictions due to Coronavirus. - Discharge Plan *PRESCRIPTION DRUG MONITORING PROGRAM REVIEWED*: No *COPY OF PRESCRIPTION DRUG MONITORING REPORT IN PATIENT BROOK: No Prescriptions/Med Rec: Cefdinir [Omnicef] 300 mg PO BID 3 Days #5 cap Potassium Chloride [Klor-Con 10] 10 meq PO BID 7 Days #14 tab.er Home Medications: Home Meds Bimatoprost [LUMIGAN 0.01% Ophth Soln] 1 drop EYEBOTH BEDTIME 12/03/19 [History] Brimonidine Tartrate/Timolol [Combigan 0.2%-0.5% Eye Drops] 1 drop EYEBOTH BID 12/03/19 [History] Carbidopa/Levodopa [Sinemet 25-100 mg Tablet] 1 tab PO TID@12,16,20 12/03/19 [ History] Cholecalciferol (Vitamin D3) [Vitamin D3] 400 unit PO BID 12/03/19 [History] Divalproex Sodium [Divalproex Sodium ER] 500 mg PO BEDTIME 12/03/19 [History] Docusate Sodium/Sennosides [Senna Plus] 2 tab PO BID 12/03/19 [History] Dorzolamide HCl 1 drop EYEBOTH BID 12/03/19 [History] FLUoxetine HCl [Fluoxetine HCl] 40 mg PO DAILY 12/03/19 [History] Hypromellose [Systane Gel] 1 drop EYEBOTH BEDTIME 12/03/19 [History] Levothyroxine 75 mcg PO ACBREAKFAST 12/03/19 [History] Multivitamin [Multivitamins] 1 tab PO DAILY 12/03/19 [History] [place]-3 Fatty Acids/Fish Oil [Fish Oil 1,000 mg Softgel] 1 each PO DAILY [History] Omeprazole 20 mg PO DAILY 12/03/19 [History] Polyethylene Glycol 3350 [Gavilax] 17 gm PO DAILY 12/03/19 [History] Propylene Glycol/PEG 400/Pf [Systane Ultra 0.4-0.3% Eye Drp] 1 each EYEBOTH QID 12/03/19 [History] QUEtiapine [SEROquel] 25 mg PO BEDTIME 12/03/19 [History] Simvastatin 20 mg PO DAILY 12/03/19 [History] Vitamin B Complex [Balanced B-50] 1 each PO DAILY 12/03/19 [History] Vitamin E 400 unit PO DAILY 12/03/19 [History] Calcium Carbonate [Tums] 500 - 2,000 mg PO ASDIRECTED PRN 12/04/19 [History] Hypromellose [Systane Gel] 1 - 2 drop EYEBOTH BEDTIME 12/04/19 [History] Lactulose [Enulose] 30 ml PO DAILY PRN 12/04/19 [History] Methyl Salicylate/Menthol [Muscle Rub Cream] 1 applic TOP Q8H PRN 12/04/19 [ History] Naproxen Sodium 220 mg PO BID PRN 12/04/19 [History] Sodium Chloride [Saline Nasal [place]] 1 spray NASBOTH TID PRN 12/04/19 [History] Sodium Fluoride [Dentagel] 1 applic TOP BID 12/04/19 [History] Cefdinir [Omnicef] 300 mg PO BID 3 Days #5 cap 12/08/19 [Rx] Potassium Chloride [Klor-Con 10] 10 meq PO BID 7 Days #14 tab.er 12/08/19 [Rx] Patient Handouts: Potassium chloride tablets, extended-release tablets or capsules, Cefdinir capsules, Preventing Antibiotic Resistance, Community- Acquired Pneumonia, Adult, [id number] Forms: ED Department Discharge Referrals: PCP,None [Primary Care Provider] - - Discharge Summary/Plan Comment DC Time >30 min.: Yes - General Info Date of Service: 12/08/19 Subjective Update: Patient better today, wants to sleep in but also anxious to go back to [facility]. Been off IV fluids, weight is down, edema is resolving. Has been afebrile for >48 hours. - Patient Data Vitals - Most Recent: Last Vital Signs Temp 98.4 F 12/08/19 08:00 Pulse 70 12/08/19 08:00 Resp 20 12/08/19 08:00 BP 115/68 12/08/19 08:00 Pulse Ox 95 12/08/19 08:00 Weight - Most Recent: 174 lb 8 oz I&O - Last 24 hours: Intake & Output 12/07/19 12/08/19 12/08/19 22:59 06:59 14:59 Intake Total 150 368 Output Total 1400 200 Balance -1250 168 Lab Results - Last 24 hrs: Laboratory Results - last 24 hr 12/08/19 Range/Units 06:00 Sodium 148 H (135-145) mmol/L Potassium 3.2 L (3.5-5.3) mmol/L Chloride 111 H (100-110) mmol/L Carbon Dioxide 29 (21-32) mmol/L BUN 4 L (7-18) mg/dL Creatinine 0.8 (0.70-1.30) mg/dL Est Cr Clr Drug Dosing 83.77 mL/min Estimated GFR (MDRD) > 60 (>60) BUN/Creatinine Ratio 5.0 L (9-20) Glucose 106 (80-116) mg/dL Calcium 8.3 L (8.6-10.2) mg/dL HEBER Results - Last 24 hrs: Microbiology 12/03/19 19:50 Aerobic Blood Culture - Preliminary Blood - Venous NO GROWTH AFTER 4 DAYS Anaerobic Blood Culture - Preliminary NO GROWTH AFTER 4 DAYS 12/03/19 19:55 Aerobic Blood Culture - Preliminary Blood - Venous - Lab Draw NO GROWTH AFTER 4 DAYS Anaerobic Blood Culture - Preliminary NO GROWTH AFTER 4 DAYS Med Orders - Current: Current Medications Acetaminophen (Tylenol) 650 mg PO Q4H PRN PRN Reason: Pain (Mild 1-3)/fever Brimonidine Tartrate ([place] 0.2% Ophth Soln) 0 ml EYEBOTH BID [facility] Last Admin: 12/08/19 10:21 Dose: 1 drop Carbidopa/Levodopa (Sinemet 25-100 Mg) 1 tab PO TID@1200,1600,2000 [facility] Last Admin: 12/08/19 11:38 Dose: 1 tab Cefdinir (Omnicef) 300 mg PO BID [facility] Stop: 12/10/19 21:01 Last Admin: 12/08/19 10:24 Dose: 300 mg Dorzolamide HCl (Trusopt 2% Ophth Soln) 0 ml EYEBOTH BID [facility] Last Admin: 12/08/19 10:22 Dose: 1 drop Fish Oil (Fish Oil) 1 gm PO DAILY [facility] Last Admin: 12/08/19 10:23 Dose: 1 gm Fluoxetine HCl (Prozac) 40 mg PO DAILY [facility] Last Admin: 12/08/19 10:24 Dose: 40 mg Azithromycin 500 mg/ Sodium (Chloride) 250 mls @ 250 mls/hr IV DAILY@2300 [facility] Last Admin: 12/07/19 22:39 Dose: 250 mls/hr Latanoprost (Xalatan 0.005% Ophth Soln) 0 ml EYEBOTH BEDTIME [facility] Last Admin: 12/07/19 20:59 Dose: 1 drop Levothyroxine Sodium (Levothyroxine) 75 mcg PO DAILY@0600 [facility] Last Admin: 12/08/19 06:30 Dose: 75 mcg Morphine Sulfate (Morphine) 2 mg IVPUSH Q2H PRN PRN Reason: Pain (severe 7-10) Last Admin: 12/05/19 20:22 Dose: 2 mg Naproxen (Naprosyn) 250 mg PO Q12H PRN PRN Reason: Pain Last Admin: 12/07/19 09:54 Dose: 250 mg Ondansetron HCl (Zofran) 4 mg IV Q6H PRN PRN Reason: Nausea/Vomiting Last Admin: 12/05/19 14:35 Dose: 4 mg Pantoprazole Sodium (Protonix) 40 mg PO DAILY@0600 [facility] Last Admin: 12/08/19 06:30 Dose: 40 mg Polyethylene Glycol (Miralax) 17 gm PO DAILY [facility] Last Admin: 12/08/19 10:24 Dose: 17 gm Potassium Chloride (Klor-Con 10) 10 meq PO BID [facility] Last Admin: 12/08/19 10:23 Dose: 10 meq Propylene Glycol (Systane Lubricant) 0 ml EYEBOTH QID [facility] Last Admin: 12/08/19 12:36 Dose: 1 drop Quetiapine Fumarate (Seroquel) 25 mg PO BEDTIME [facility] Last Admin: 12/07/19 20:59 Dose: 25 mg Senna/Docusate Sodium (Senna Plus) 2 tab PO BID [facility] Last Admin: 12/08/19 10:24 Dose: 2 tab Simvastatin (Zocor) 20 mg PO BEDTIME [facility] Last Admin: 12/07/19 20:59 Dose: 20 mg Sodium Chloride (Saline Flush) 10 ml FLUSH ASDIRECTED PRN PRN Reason: Keep Vein Open Last Admin: 12/07/19 09:43 Dose: 10 ml Timolol Maleate (Timoptic 0.5% Ophth Soln) 0 ml EYEBOTH BID [facility] Last Admin: 12/08/19 10:21 Dose: 1 drop Discontinued Medications Ceftriaxone Sodium (Rocephin) 2 gm IVPUSH DAILY@2300 [facility] Last Admin: 12/04/19 00:07 Dose: 2 gm Ceftriaxone Sodium (Rocephin) 1 gm IVPUSH DAILY@2300 [facility] Stop: 12/08/19 07:00 Last Admin: 12/07/19 22:28 Dose: 1 gm Sodium Chloride (Normal Saline) 1,000 mls @ 999 mls/hr IV .BOLUS ONE Stop: 12/03/19 20:37 Last Admin: 12/03/19 19:56 Dose: 999 mls/hr Sodium Chloride (Normal Saline) 1,000 mls @ 125 mls/hr IV ASDIRECTED [facility] Last Admin: 12/06/19 08:01 Dose: 125 mls/hr Sodium Chloride (Normal Saline) 1,000 mls @ 999 mls/hr IV .BOLUS ONE Stop: 12/03/19 22:43 Last Admin: 12/03/19 21:50 Dose: 999 mls/hr Sodium Chloride (Normal Saline) 1,000 mls @ 250 mls/hr IV ASDIRECTED ONE Stop: 12/04/19 21:44 Last Admin: 12/04/19 17:46 Dose: 250 mls/hr Potassium Chloride/Dextrose/Sod Cl (D5 1/2 Ns W/ 20 Meq/L Kcl) 1,000 mls @ 75 mls/hr IV ASDIRECTED [facility] Last Admin: 12/06/19 10:14 Dose: 75 mls/hr Iopamidol (Isovue-370 (76%)) 100 ml IV . DIRECTED ONE Stop: 12/03/19 20:59 Last Admin: 12/03/19 21:28 Dose: 100 ml Lidocaine HCl (Glydo) 5 ml .XX ONETIME ONE Stop: 12/03/19 22:52 Last Admin: 12/03/19 22:55 Dose: 5 ml Morphine Sulfate (Morphine) 4 mg IVPUSH ONETIME ONE Stop: 12/03/19 19:38 Last Admin: 12/03/19 19:54 Dose: 4 mg Non-Formulary Medication (Brimonidine Tartrate/Timolol [Combigan 0.2%-0.5% Eye Drops]) 1 drop EYEBOTH BID [facility] Non-Formulary Medication (Cholecalciferol (Vitamin D3) [Vitamin D3]) 400 unit PO BID [facility] Non-Formulary Medication (Multivitamin [Multivitamins]) 1 tab PO DAILY [facility] Non-Formulary Medication (Vitamin B Complex [Balanced B-50]) 1 each PO DAILY [facility] Non-Formulary Medication (Vitamin E [Vitamin E]) 400 unit PO DAILY [facility] Non-Formulary Medication (Naproxen Sodium [Naproxen Sodium]) 220 mg PO BID PRN PRN Reason: HIP PAIN Ondansetron HCl (Zofran) 4 mg IVPUSH ONETIME ONE Stop: 12/03/19 19:38 Last Admin: 12/03/19 19:54 Dose: 4 mg Potassium Chloride (Klor-Con M20) 20 meq PO BID [facility] Last Admin: 12/07/19 09:47 Dose: 20 meq - Exam General: Reports: Alert, Oriented, Cooperative, No Acute Distress Lungs: Reports: Clear to Auscultation, Normal Respiratory Effort, Crackles (few left ) Cardiovascular: Reports: Regular Rate, Regular Rhythm GI/Abdominal Exam: Normal Bowel Sounds, Soft, Non-Tender, No Distention (Male) Exam: Deferred Rectal (Males) Exam: Deferred Extremities: No Pedal Edema Skin: Reports: Warm, Dry, Intact
== END 2019-12-08 13:40 | disposition home health service (06) | DRG 195 ==
LOC: FB.ED 19:08 → FB.MS 23:09
PROVIDERS: ADMIT Family Medicine; ATTEND Family Medicine
DX: J18.9 Pneumonia, unspecified organism (principal); E78.00 Pure hypercholesterolemia, unspecified; R11.2 Nausea with vomiting, unspecified; E03.9 Hypothyroidism, unspecified; E78.5 Hyperlipidemia, unspecified; H40.9 Unspecified glaucoma; G20 Parkinson's disease; Z72.811 Adult antisocial behavior; F79 Unspecified intellectual disabilities; F60.2 Antisocial personality disorder; F32.9 Major depressive disorder, single episode, unspecified; F81.9 Developmental disorder of scholastic skills, unspecified; Z51.5 Encounter for palliative care; E86.0 Dehydration; K59.09 Other constipation; Z90.49 Acquired absence of other specified parts of digestive tract; Z91.048 Other nonmedicinal substance allergy status; Z79.899 Other long term (current) drug therapy; Z99.81 Dependence on supplemental oxygen; Z87.891 Personal history of nicotine dependence; Z79.890 Hormone replacement therapy
CPT/HCPCS: 36415; 51798; 71045; 74177; 80048; 80053; 81001; 83605; 83690; 83735; 84484; 85025; 86140; 87040; 87086; 87804; 87804-59; 93005; 94760; 96361; 96374; 96375; 99285-25; A9270-GY; J0456; J0696; J2270; J2405; J3480; J7030; J7050; Q9967

== ENCOUNTER 2022-04-27 22:57 | Emergency (ER) | payer MEDICARE, MEDICAID ==
[2022-04-27] MEDS ORDERED: LORazepam 2 MG/ML SDV IM ONE (23:17)
[2022-04-27 23:49] LABS: ESTIMATED GFR 73 mL/min (>60)
== END 2022-04-28 00:58 | disposition home or self-care (01) ==
LOC: FB.ED 22:57
DX: R56.9 Unspecified convulsions (principal); Z91.048 Other nonmedicinal substance allergy status; Z79.899 Other long term (current) drug therapy
CPT/HCPCS: 36415; 70450; 72125; 80053; 84484; 85025; 93005; 96372; 99285; J2060